=== PATIENT | female | born 1990 | race Caucasian/White ===

== ENCOUNTER 2022-08-25 11:55 | Outpatient (CLI) | payer BC, SELFPAY ==
--- NOTE | ~2022-08-25 | XR_ITS ---
EXAMINATION: XR thoracic spine 2V DATE: 08/25/2022 12:18 INDICATION: Back pain TECHNIQUE: AP and lateral views of the thoracic spine were obtained. COMPARISON: None. FINDINGS: There are 15 degrees of thoracic dextroscoliosis. Bone alignment is normal. There is no fra cture. The vertebral body heights and intervertebral disc spaces are maintained. IMPRESSION: 1. 50 degrees of thoracic dextroscoliosis. Reviewed, dictated and finalized at location B.
--- NOTE | ~2022-08-25 | XR_ITS ---
EXAMINATION: XR lumbar spine 2-3V DATE: 08/25/2022 12:18 INDICATION: Low back pain TECHNIQUE: Anteroposterior and lateral views of the lumbar spine, and cone-down lateral view of the l umbosacral junction were obtained. COMPARISON: None. FINDINGS: There are 6 degrees of lumbar levocurvature. Bone alignment is normal. There is no fracture . There is mild loss of intervertebral disc space height at L5-S1. The vertebral body heights are eliana ntained. Small degenerative osteophytes project from the anterior endplates of multiple vertebral bod ies. IMPRESSION: 1. Mild lumbar spondylosis without acute findings. Reviewed, dictated and finalized at location B.
== END 2022-08-25 11:56 | disposition home or self-care (01) ==
PROVIDERS: PCP Family Medicine; Visit Provider Physician Assistant
DX: M41.9 Scoliosis, unspecified (principal); M47.896 Other spondylosis, lumbar region
CPT/HCPCS: 72070; 72100

== ENCOUNTER 2022-10-27 06:52 | Outpatient (CLI) | payer BC, SELFPAY ==
--- NOTE | ~2022-10-27 | MR_ITS ---
MRI of the lumbar spine Clinical History: Scoliosis Technique: Axial T2-weighted images, and sagittal T1-weighted, T2-weighted, and T2 fat-sat images wer e acquired. Findings: There is no fracture or subluxation of the lumbar spine. Vertebral bodies maintain normal h eight and alignment. No bone marrow signal abnormality seen. At L1-L2 and L2-L3, there is no disc bulge or herniation. There is mild to moderate facet arthropathy . No spinal canal stenosis or neural foraminal narrowing At L3-L4, there is no significant disc bulge or herniation. There is moderate facet arthropathy. No s minnie canal stenosis or neural foraminal narrowing. At L4-L5, there is diffuse disc bulge/protrusion, with superimposed small disc extrusion at the right paracentral region extending inferiorly. There is mild facet arthropathy. There is minimal thecal sa c compression. Bilateral neural foramina are preserved. There may be impingement of descending right- sided L5-S1 level nerve root by the disc extrusion. At L5-S1, there is disc protrusion with small annular fissure. No lauren central canal stenosis. There is mild to moderate bilateral neural foraminal narrowing, left worse than right. Paravertebral soft tissues are unremarkable. At these levels. Impression: Disc bulge at L4-L5 with superimposed right paracentral disc extrusion extending inferiorly, which ma y impinge the descending right-sided L5-S1 level nerve root. Ghyd-co-hhdnglax degenerative spondylosis at L5-S1, as detailed above. Reviewed, dictated and finalized at [facility]. Impression: Disc bulge at L4-L5 with superimposed right paracentral disc extrusion extendin g inferiorly, which may impinge the descending right-sided L5-S1 level nerve ro ot. Pewm-iv-makonkiz degenerative spondylosis at L5-S1, as detailed above.
== END 2022-10-27 06:53 | disposition home or self-care (01) ==
PROVIDERS: PCP Family Medicine; Visit Provider Nurse Practitioner Gerontology
DX: M41.9 Scoliosis, unspecified (principal); M47.897 Other spondylosis, lumbosacral region
CPT/HCPCS: 72148

== ENCOUNTER 2022-11-17 10:35 | Outpatient (CLI) | payer BC, SELFPAY ==
--- NOTE | ~2022-11-17 | XR_ITS ---
EXAMINATION: XR hysterosalpingogram DATE: 11/17/2022 12:33 INDICATION: Fertility testing. TECHNIQUE: Fluoroscopy was performed by the radiologist during contrast infusion into the endometrial cavity of the uterus by the primary physician. Fluoroscopy exposure time was 0.2 minutes. The total number of images was 4. FINDINGS: The intrauterine cavity is normal in morphology. The fallopian tubes are normal in caliber. There is normal free intraperitoneal spillage of contrast on either side. IMPRESSION: 1. Normal hysterosalpingogram. Reviewed, dictated and finalized at location A.
[2022-11-17 12:05] LABS: Beta HCG Quantitative < 2.39 mIU/ML
== END 2022-11-17 10:36 | disposition home or self-care (01) ==
PROVIDERS: PCP Family Medicine; Visit Provider Obstetrics & Gynecology Gynecology
DX: Z01.818 Encounter for other preprocedural examination (principal)
CPT/HCPCS: 36415; 58340; 74740; 84702; Q9966

== ENCOUNTER → 2023-02-16 11:17 | Outpatient (CLI) | payer BC, SELFPAY ==
--- NOTE | ~2023-02-16 | US_ITS ---
EXAMINATION: US OB transvaginal DATE: 02/16/2023 11:50 INDICATION: Uncertain dates. from in vitro fertilization. TECHNIQUE: Real-time transvaginal pelvic ultrasound was performed. COMPARISON: None. FINDINGS: The uterus measures 9.1 x 5.3 x 5.9 cm. There is a 2.4 cm subserosal fibroid. There is an intrauterin e gestational sac. A yolk sac is identified. The crown rump length measures 10 mm, which corre lates with an estimated gestational age of 7 weeks and 1 day(s) (+/-) 5 day(s). heart motion is identified measuring 143 beats per minute (bpm) by M-mode Doppler. The right ovary measures 2.1 x 1. 7 x 2.1 cm. The left ovary measures 3.0 x 2.7 x 2.4 cm. There is no free fluid in the pelvis. IMPRESSION: 1. Single living intrauterine gestation with estimated date of delivery of 10/04/2023. 2. Uterine fibroid. Reviewed, dictated and finalized at location E. IMPRESSION: 1. Single living intrauterine gestation with estimated date of delivery of 10/03. 2. Uterine fibroid.
== END ==
PROVIDERS: PCP Obstetrics & Gynecology Gynecology; Visit Provider Obstetrics & Gynecology Gynecology
DX: N97.9 Female infertility, unspecified (principal); O09.811 Supervision of pregnancy resulting from assisted reproductive technology, first trimester; Z3A.00 Weeks of gestation of pregnancy not specified
CPT/HCPCS: 76817

== ENCOUNTER 2023-10-03 12:37 | Outpatient (RCR) | payer BC, SELFPAY ==
[2023-09-18 09:17] VITALS: BP 107/63; PULSE 84
[2023-09-23 17:31] VITALS: BP 105/67; PULSE 77
[2023-09-26 11:05] VITALS: BP 114/67; PULSE 72
[2023-10-03 13:06] VITALS: BP 114/70; PULSE 90
== END 2023-10-19 08:12 | disposition home or self-care (01) ==
LOC: ANHOBOP 12:37
PROVIDERS: PCP Family Medicine; Visit Provider Obstetrics & Gynecology Gynecology
DX: O09.519 Supervision of elderly primigravida, unspecified trimester (principal); Z3A.37 37 weeks gestation of pregnancy; Z3A.38 38 weeks gestation of pregnancy; Z3A.39 39 weeks gestation of pregnancy
CPT/HCPCS: 59025

== ENCOUNTER 2023-10-06 15:51 | Inpatient (IN) | payer BC, SELFPAY ==
[2023-10-06] VITALS (13 sets, daily range): BP systolic 85–121; BP diastolic 39–98; PULSE 58–94; TEMP 36.6–37; BMI 28.8
[2023-10-06 17:14] LABS: Basophils Percent Auto 0.2 % (0.2-1.2); Eosinophils Absolute Auto 0.1 K/mm3 (0-0.3); Eosinophils Percent Auto 0.6 % (0-4.4); Hematocrit 33.6 % (37.0-47.0); Hemoglobin 11.7 g/dL (12.0-15.0); Immature Granulocyte Absolute 0.09 K/mm3 (0.00-0.031); Immature Granulocyte Percent A 0.9 % (0-0.5); Lymphocytes Absolute Auto 1.65 K/mm3 (0.9-3.2); Lymphocytes Percent Auto 17.4 % (18.3-44.2); Mean Corpuscular HGB Conc 34.8 g/dl (32-36); Mean Corpuscular Hemoglobin 31.3 pg (26-34); Mean Corpuscular Volume 89.8 fl (80-100); Mean Platelet Volume 10.3 fl (7.4-10.4); Monocytes Absolute Auto 0.7 K/mm3 (0.1-0.6); Monocytes Percent Auto 7.7 % (2.6-8.5); Neutrophils Absolute Auto 6.9 K/mm3 (1.3-6.7); Neutrophils Percent Auto 73.2 % (45.5-73.1); Platelet Count Result 205 k/mm3 (150-375); Red Blood Count 3.74 M/mm3 (4.2-5.4); Red Cell Distribution Width 12.8 % (11.5-14.5); White Blood Count 9.5 K/mm3 (4.5-10.0)
--- NOTE | 2023-10-06 17:21 | WPDOBADMIT ---
Obstetrics - Admit Note Admission Note: record reviewed. No pertinent additions to the history and/or any subsequent changes in the physical findings that are not consistent with the expected course of the were found. Additions to the history and/or subsequent changes in the physical findings follow. None.
[2023-10-06] MEDS: miSOPROStol 25 MCG TABLET VAGINAL (17:27)
--- NOTE | 2023-10-06 17:41 | LDADM ---
This patient, Jan Green, was admitted to Labor/Delivery/Recovery 102 on 10/06/23 at 15:51. Plans for labor, pain management and were discussed with patient. Patient/family oriented to hospital policies and general routines including ID bracelet, bed and alarms, visiting hours, pain management, procedures, bathroom and other care routines, personal items, smoking policy, room service/diet and guest tray routines, security routines, and visiting hours. Patient/Family are encouraged to report perceived risks to care and to ask questions if they do not understand what they are told or what they should do. See OBIX for further documentation.
[2023-10-06 18:15] LABS: HIV 1/2 Ab P24 Ag Result Negative (Negative)
[2023-10-06] MEDS: LACTATED RINGERS 1,000 ML 125 ML IV CONT (18:31)
[2023-10-06] MEDS: AMPICILLIN 2 GM/NS 100 ML 2 GM/100 ML BAG IVPB (18:32)
--- NOTE | 2023-10-06 18:48 | WPDANESEPP ---
Anes - Eval Pre Procedure Procedure: Labor epidural Date/Time: 10/06/23 18:48 Pre Op Diagnosis: Induction of Labor Patient Data Age: 33 Gender: F Height: 1.73 m Weight: 86 kg Last Vital Signs Pulse 85 10/06/23 18:10 BP 106/61 10/06/23 18:10 O2 Del Method Room Air 10/06/23 17:37 Allergies Allergy/AdvReac Type Severity Reaction Status Date / Time cefaclor Allergy Unknown Rash Verified 09/07/23 13:49 Home Medications Medication Instructions Recorded Confirmed Type cholecalciferol (vitamin D3) 125 125 mcg PO WEEKLY 09/07/23 09/07/23 History mcg (5,000 unit) tablet (Vitamin D3) vits no.126-ferrous fum 1 tablet PO DAILY 09/07/23 09/07/23 History 28 mg iron-folic acid 800 mcg tablet (Classic ) aspirin 81 mg capsule 81 mg PO DAILY 10/06/23 10/06/23 History cetirizine 10 mg capsule (Zyrtec) 10 mg PO DAILY PRN allergies 10/06/23 10/06/23 History fluticasone propionate 50 1 spray intranasal DAILY 10/06/23 10/06/23 History mcg/actuation nasal spray,suspension Laboratory Tests 10/06/23 17:06 WBC 9.5 K/mm3 (4.5-10.0) RBC 3.74 L M/mm3 (4.2-5.4) Hgb 11.7 L g/dL (12.0-15.0) Hct 33.6 L % (37.0-47.0) MCV 89.8 fl (80-100) MCH 31.3 pg (26-34) MCHC 34.8 g/dl (32-36) RDW 12.8 % (11.5-14.5) Plt Count 205 k/mm3 (150-375) MPV 10.3 fl (7.4-10.4) Immature Gran % (Auto) 0.9 H % (0-0.5) Neut % (Auto) 73.2 H % (45.5-73.1) Lymph % (Auto) 17.4 L % (18.3-44.2) [place] % (Auto) 7.7 % (2.6-8.5) Eos % (Auto) 0.6 % (0-4.4) Baso % (Auto) 0.2 % (0.2-1.2) Lymph # (Auto) 1.65 K/mm3 (0.9-3.2) [place] # (Auto) 0.7 H K/mm3 (0.1-0.6) Eos # (Auto) 0.1 K/mm3 (0-0.3) Baso # (Auto) 0.0 K/mm3 (0.0-0.1) Abs Immat Gran (auto) 0.09 H K/mm3 (0.00-0.031) Absolute Neuts (auto) 6.9 H K/mm3 (1.3-6.7) Absolute Nucleated RBC 0.000 K/mm3 (0.0-0.012) Nucleated RBC % 0.0 % (0.0-0.2) RPR Pending HIV 1&2 Ab/P24 Ag 4thGn Negative (Negative) Blood Type O Positive Antibody Screen Negative Patient hx anesthesia problems: none Family hx anesthesia problems: none Results Review: All pre-operative results and documents have been reviewed as part of the pre-operative evaluation. [facility] Past Medical History Medical History (Updated 10/06/23 @ 18:49 by Beverley Bell CRNA) Anal fissure VALENCIA (generalized anxiety disorder) Herniated disc Surgical History Surgical History No significant past surgical history Family History Family History Mother Depression Diabetes mellitus borderline Hypertension Diverticulitis Mixed hyperlipidemia Grandparent Family history of lung cancer Diabetes mellitus Hypertension Mixed hyperlipidemia Father Carcinoma of colon Social History Social History Social History: Years smoked: 5 Smoking status: Former smoker Tobacco type: cigarettes Second hand tobacco smoke exposure: No Smoking end date: 10/03/23 Additional smoking assessment comments: Occasional social smoker. Alcohol intake: current Alcohol use details: Socially Substance use: never Substance use type: does not use Do You Feel Safe in your Home?: Yes Lack of Transportation: No Lack of Food: Never True Current Housing: I Have Housing Concerned About Future Housing: No Difficulty Paying Gas/Electric Bills: No Difficulty Paying for Meds: No Currently Unemployed: No Education: Bachelor's Degree Difficulty w/ Childcare or Family Care: No Living arrangements: with family Occupation/Education: occupation Gender identity (if verbalized by the patient): Female Sexual Orientation (if Verbalized by the Patient):
[2023-10-06] MEDS: miSOPROStol 25 MCG TABLET 50 MCG VAGINAL (21:40)
[2023-10-06] MEDS: hydrOXYzine HCL 25 MG TABLET PO (22:59)
[2023-10-06] MEDS: AMPICILLIN 1 GM/NS 50 ML 1 GM/50 ML BAG IVPB (23:04)
[2023-10-07] VITALS (237 sets, daily range): BP systolic 56–144; BP diastolic 19–116; PULSE 53–165; TEMP 36.7–38; O2SAT 82–100
[2023-10-07] MEDS: miSOPROStol 25 MCG TABLET 50 MCG BY MOUTH (01:42)
[2023-10-07] MEDS: AMPICILLIN 1 GM/NS 50 ML 1 GM/50 ML BAG IVPB ×6 (03:04→22:29)
--- NOTE | 2023-10-07 06:59 | PM.OBPNLAB ---
Pain Control Date/time seen: 10/07/23 06:50 Pain control: tolerating well Comments: Feeling cramping Pelvic Exam Dilation (cm): 1 (1.5) Effacement (%): 60 station: -2 Amniotic membrane status: Intact Comments: head well applied Contractions Monitor mode: External Contraction frequency: 3 Contraction pattern: Regular Contraction intensity: Moderate Status status: Category l Assessment and Plan Assessment: induction ongoing Comments: CNM to bedside. Discussed plan of care an option for amniotomy. Discussed risks, benefits, and expectations of breaking water. Patient is agreeable. Amniotomy performed and there was a small return of clear amniotic fluid with some bloody show. Patient tolerated procedure well. Dr. London updated.
[2023-10-07] MEDS: LACTATED RINGERS 1,000 ML 125 ML IV CONT ×2 (08:34→13:16)
[2023-10-07] MEDS: hydrOXYzine HCL 12.5 MG TABLET PO (09:19)
--- NOTE | 2023-10-07 15:28 | P.PNOB_ITS ---
Pain Control Date/time seen: 10/07/23 15:20 Pain control: tolerating well and epidural Pelvic Exam Dilation (cm): 5 (5.5) Effacement (%): 80 station: -2 Amniotic membrane status: Ruptured Comments: bloody show present. No active bleeding. Uterine resting tone soft. Contractions Monitor mode: External Contraction pattern: Irregular Contraction intensity: Moderate Status status: Category ll Assessment and Plan Assessment: active labor Comments: Discussed plan of care. Recommend IUPC placement to facilitate uterine activity monitoring. Bloody show WNL/moderate. Due to cervical edema, recommend IV benadryl. If needed, start pitocin in about 30 minutes. Pt agrees to IUPC. Mayuri lyubov easily and clear fluid returned in catheter. Ctx q [address] London updated.
[2023-10-07] MEDS: diphenhydrAMINE HCl INJ 50 MG/ML VIAL 25 MG IV PUSH (15:31)
[2023-10-07] MEDS: CALCIUM CARBONATE (TUMS) 500 MG (200 MG ELEMENTAL) PO (15:31)
[2023-10-07] MEDS: OXYTOCIN 30 UNITS/NS 500 ML 30 UNITS/500 ML BAG IV CONT (16:06)
[2023-10-07 16:23] LABS: Rapid Plasma Reagin Non-Reactive (NonReactive)
[2023-10-07] MEDS: ACETAMINOPHEN 500 MG TABLET 1000 MG PO (17:22)
[2023-10-07] MEDS: GENTAMICIN SULFATE INJ 430 MG in DEXTROSE 5% 100 ML 110.75 MG IVPB (17:36)
--- NOTE | 2023-10-07 17:52 | PM.OBPNLAB ---
Pain Control Date/time seen: 10/07/23 17:20 Pain control: tolerating well and epidural Pelvic Exam Dilation (cm): 5 (5.5) Effacement (%): 80 station: -1 Amniotic membrane status: Ruptured Comments: Bloody show WNL Contractions Monitor mode: Internal Contraction frequency: 3 (2-4) Contraction pattern: Irregular Contraction intensity: Moderate Intrauterine tone measurement: 110 (110-120) Status status: Category ll Assessment and Plan Comments: SVE with change of station. Not adequate per IUPC readings. Repositioned to far L Lateral with leg supported on ball. Ordered Gentamycin due to fever of 100.4 and change in FHT baseline.
--- NOTE | 2023-10-07 18:06 | PM.OBPNLAB ---
Pain Control Date/time seen: 10/07/23 18:06 Contractions Intrauterine tone measurement: 110 (110-120) Assessment and Plan Comments: Dr. London at nurses station. Reviewed tracing and plan of care.
--- NOTE | 2023-10-07 18:29 | PM.OBPNLAB ---
Pain Control Date/time seen: 10/07/23 18:25 Pain control: epidural Comments: Feeling increased rectal pressure Pelvic Exam Dilation (cm): 6 (5.5) Effacement (%): 90 station: -1 Amniotic membrane status: Ruptured Contractions Monitor mode: Internal Contraction frequency: 3 (3-5) Contraction pattern: Irregular Status status: Category ll Assessment and Plan Pitocin rate (mU/min): 4 Assessment: induction ongoing Comments: SVE with good change. Less edema. Bloody show still present with 2 small dime sized clots. Uterine resting tone remains soft to palpation at rest. Ctx moderate to strong. Feeling increased pelvic/rectal pressure. Denies any abdominal pain.
--- NOTE | 2023-10-07 20:23 | PM.OBPNLAB ---
Pain Control Date/time seen: 10/07/23 20:23 Pain control: tolerating well and epidural Pelvic Exam Dilation (cm): 8 (8.5) Effacement (%): 90 station: +1 Amniotic membrane status: Ruptured Contractions Monitor mode: Internal Contraction frequency: 3 (3-5) Contraction pattern: Regular Status status: Category ll Assessment and Plan Pitocin rate (mU/min): 5 Assessment: active labor Plan: continuous present management Comments: Recent FHT decel and pt reports feeling increased rectal pressure. SVE with good change and descent in station. Anticipate vaginal . Dr. London updated.
[2023-10-07] MEDS: DEXTROSE 5%/LACTATED RINGERS 1,000 ML 125 ML IV CONT (20:39)
--- NOTE | 2023-10-07 21:37 | PM.OBPRVD ---
OB - Vaginal Delivery Note Procedure Delivery date: 10/08/23 Events: Positive Group B Strep (GBS) Intrapartal Events: Chorioamnionitis Induction method: AROM and Per Misoprostol Protocol Delivery augmentation: Pitocin Delivery monitor: External FHT and Internal Uterine Route of delivery: Episiotomy description: Right Mediolateral Laceration Description: Vaginal (left vaginal wall), Labial (right labial/vaginal wall) and Other (bilateral sulcus) Delivery repair: vicryl Specimen: Yes (placenta) Quantitative Blood Loss (ml): 950 Anesthesia type: Epidural Disposition: Floor Complications: Other complications (hemorrhage) Narrative: Jan arrived for Induction of labor secondary to advanced maternal age and marginal cord insertion. she received Cytotec for cervical ripening after which membranes were ruptured. She made some cervical change and Pitocin was later given for augmentation. After she was determined to be completely dilated, she began pushing with contractions. For the 1st 30-45 minutes there was fair maternal effort with pushing but this improved. She pushed in multiple positions and eventually brought the head to complete crown. Over the next 3-4 contractions, the head remained at a crown and a tight perineal band was noted. Informed consent was obtained from the patient to perform an episiotomy. A right mediolateral episiotomy was made with the next contraction. With the following contraction, she delivered the entire head. There was good restitution any easy delivery of the anterior and posterior shoulders. Terminal meconium was noted at this point. After 45 seconds of delayed cord clamping, the cord was doubly clamped and cut. Cord blood was obtained for donation after which cord gases, cord blood, and cord segment were obtained. The placenta delivered spontaneously and marginal cord insertion was noted. All lacerations were repaired in the usual fashion. There was excellent hemostasis and uterine tone throughout. Mother and baby skin to skin in the delivery room. Estimated blood loss 950 mL. Additional IV fluids given to compensate blood loss. [place] Baby Date of : 10/08/23 Time of : 00:48 Weeks of gestation at delivery: 40 gender: Male Weight (pounds): 8 Weight (ounces): 5 presentation: vertex position: Right Occiput Anterior Placenta delivery description: Spontaneous and Abnormal Configuration (marginal insertion) Cord Vessel Description: 3 Vessels and Delayed Cord Clamping (x 45 seconds) score one minute: 8 score five minutes: 9
--- NOTE | 2023-10-07 21:38 | PM.OBDSVD ---
DS: Admitting Diagnosis Discharge Date 10/10/23 Admitting Diagnosis 33 y.o. at 39 weeks AMA IOL LGA fetus DS: Discharge Diagnosis Discharge Diagnosis (1) (normal spontaneous vaginal delivery): Code(s): O80 - Encounter for full-term uncomplicated delivery Status: Acute (2) Obstetric vaginal laceration with second degree perineal laceration: Code(s): O70.1 - Second degree perineal laceration during delivery Status: Acute (3) Anxiety: Code(s): F41.9 - Anxiety disorder, unspecified Status: Acute (4) Mother currently breastfeeds: Status: Acute OB - DS: Summary Hospital Course Hospital Course: uncomplicated OB Procedures : Ultrasound OB Procedures Intrapartum: Spontaneous Vag Delivery, Episiotomy, GBS prophylaxis and Other (antibiotics for temp) OB Procedures: : None Peripartum Data Delivery Method: Natural Vaginal Laceration Description: Vaginal and Labial Episiotomy description: Right Mediolateral complications: other (hemorrhage) Status at Discharge Functional status at discharge: independent ambulation Overall status at discharge: patient is progressing back to baseline Time Spent with Patient Time attestation: Total time spent providing and/or coordinating discharge services: Exam Narrative: Alert and oriented. Mood is pleasant and cooperative. Perineum with minimal edema. Fundus firm and below umbilicus. Const: General: cooperative, healthy appearing, no acute distress and alert Orientation/consciousness: patient oriented x3 Limitations: no limitations Resp: Effort & Inspection: normal respiratory effort and able to speak in complete sentences Auscultation: clear to auscultation bilaterally Cardio: Rate: regular rate GI: Inspection: normal to inspection Auscultation: normal bowel sounds : General: Yes bladder normal to palpation External Female Exam: other (lochia WNL) Bimanual exam- vagina & uterus: bladder normal to palpation Other: Fundus firm and below U Skin: General skin exam: normal color and no rashes or lesions noted Neuro: General: patient oriented x3 and moves all extremities Cognition (Neuro): normal cognition Extrem: General: normal to inspection and no calf tenderness Psych: Appearance: grossly normal Mental Status: mental status grossly normal Affect: normal affect Thought process: Normal thought process present DS: Data Data Completed and Pending Labs on day of discharge: Labs from last 24 hours 10/06/23 17:06 RPR Non-reactive Discharge Plan Discharge Attending physician on discharge: Sammie Samayoa Consulting providers: Julius London Discharging Clinician: Samira Verduzco Anticipated Discharge Date/Time: 10/10/23 10:00 Patient Disposition: Home, Self-Care Activity: may shower and pelvic rest Diet: as tolerated and regular Wound Care Instructions: follow printed instructions Discharge Instructions: Continue taking your vitamin and any other supplements as previously directed (Examples: Iron, Vitamin D). You may take Tylenol 1000mg over the counter every 6 hours as needed for pain. Do not exceed 4000mg of Tylenol daily. You may continue using tucks pads and dermoplast spray if needed for a few more days. max dose of Tylenol is 4000mg per 24 hour period Try to pump and hand express every 2-3 hours during the day and at least twice at night. Depression Notify provider for signs or symptoms. These may include- Feelings: Feeling anxious, angry, hopeless, guilt, or loss of interest/pleasure in activities you normally enjoy. Mood swings or panic attacks. General: Extreme fatigue, loss of your appetite, feeling restless. Crying excessively, irritability, insomnia Psychological: Lack of concentration, depression or fear, unwanted thoughts Weight: Significan
--- NOTE | 2023-10-07 23:10 | PM.OBPNLAB ---
Pain Control Date/time seen: 10/07/23 23:10 Pain control: tolerating well and epidural Pelvic Exam Dilation (cm): 10 (8.5) Effacement (%): 100 station: +2 Amniotic membrane status: Ruptured Contractions Monitor mode: Internal Contraction frequency: 3 (3-5) Contraction pattern: Regular Status status: Category ll Assessment and Plan Assessment: active labor Comments: Pt pushing with contractions with fair effort. CNM continually at bedside. Repositioned pt very frequently. Making progress/descent. Pt tiring with pushing effort. Plan to give pt 20 minute break from pushing to rest and will then resume pushing.
[2023-10-08] VITALS (45 sets, daily range): BP systolic 102–138; BP diastolic 52–122; PULSE 58–154; RESP 16–18; TEMP 36.2–37.7; O2SAT 86–100
[2023-10-08] MEDS: OXYTOCIN 30 UNITS/NS 500 ML 30 UNITS/500 ML BAG 999 UNITS IV CONT (00:50)
[2023-10-08] MEDS: OXYTOCIN 30 UNITS/NS 500 ML 30 UNITS/500 ML BAG 125 UNITS IV CONT (02:01)
[2023-10-08] MEDS: WITCH HAZEL 40 PADS 1 PAD TOPICAL (04:45)
[2023-10-08] MEDS: BENZOCAINE 20% AER SPR (*SP) 56 GM CAN 1 SPRAY TOPICAL (04:45)
[2023-10-08] MEDS: IBUPROFEN 600 MG TABLET PO ×3 (05:03→22:27)
--- NOTE | 2023-10-08 05:10 | OBPPTRN ---
Patient transferred to post room #291 via wheelchair. Support person/ spouse present. Oriented to unit, room, information board, rooming in, admission packet and security measures. Patient verbalizes understanding.
[2023-10-08] MEDS: CHOLECALCIFEROL 1,000 UNITS TABLET 5000 UNITS PO (09:23)
[2023-10-08] MEDS: MULTIVIT/MIN/PREN/FOL AC/IRON TABLET 1 TAB PO (09:23)
[2023-10-08] MEDS: HYDROcodone/acetaminophen (*CRX) 5-325 MG TABLET 1 TAB PO (09:31)
--- NOTE | 2023-10-08 10:40 | PM.OBPNVD ---
OB - PN: Subj Subjective Date/time seen: 10/08/23 10:40 Interval history: CNM to bedside. Nurses working with Jan and baby with . Sitting upright in bed. Respirations even and unlabored. Skin color WNL. No signs of distress. IV fluids infusing. Plan H/H 2 hours after infusion complete. baby status: other (attempting to breastfeed) [place] feeding status: exclusively breast feeding OB - PN: Obj Data Labs 10/06/23 17:06 Labs: Laboratory Results - last 24 hr 10/06/23 17:06 RPR Non-reactive OB - PN A/P Time Spent With Patient Time: Total time spent is greater than 50% in coordination of care (as documented) at patient's floor/unit and/or counseling patient:
--- NOTE | 2023-10-08 13:47 | PC.NURSE ---
[id number] Introductions were made, then consulted with patient to assess needs related to . Discussed with mother her?plans to feed?her infant and the?experience so far. is in the nursery under the warmer related to decreased temperature. Report received that infant is spitty and gaggy . Education was given to mother of how to hand express. Mother was able to demonstrate learning and expressed drops of colostrum from each breast. Nipple shield provided to mother on the shift superintendent caustic cresylate due to ineffective . Reviewed good handwashing, cleaning the nipple shield and the appropriate way to apply and use as a tool. Discussed with mom the nipple shield precautions, possible complications associated with the risks and benefits. Reviewed practicing with a nipple shield, then without and how to protect the milk supply and production. Mom voiced understanding of the importance of hand expression, nipple stimulation and initiating a pumping schedule if infant continues to nurse with the shield. Encouraged mother to place [id number] when comes back to the room. Resources provided for inpatient with LARISA NOVOA name written on the communication board to use along with the call light. Mother voiced understanding of information and will call if there is a request for assistance. Reported to the Primary RN. 1240 - Encouraged understanding of the benefits of skin to skin (demonstrating unwrapping infant and placing upright on her chest), stimulating with massage touch, changing positions to encourage wakefulness, how to watch for early feeding cues, responsive feeding, feeding on demand (aiming for 8-12 times in 24 hours, about every 2-3 hours), milk production, building/maintaining a milk supply, duration of feeding, signs of adequate intake/output and how to record on the feeding sheet. Reviewed positioning and ear, shoulder, hip alignment, supporting the breast to facilitate a deep latch, asymmetrical latch (off-center), leading with the chin with a big, open, wide gape and body close to mother. makes no attempts to latch at this time related to no rooting visualized. Mother requests attempting with the nipple shield to get to feed. LARISA NOVOA shared with mother without infant making effort to open the mouth and latch we can attempt but might not be ready at this time. made no attempts with or without the nipple shield. Temperature of infant was taken and resulted as 97.6 F. Mother is anxious. Malena W. RN is confident and capable to instruct patient with initiating pumping. Reported to the Primary RN Juanita regarding decreasing temperature, slow cap refill and poor feeding with no latching.
[2023-10-08 14:53] LABS: Hematocrit 29.7 % (37.0-47.0)
[2023-10-08] MEDS: SIMETHICONE 80 MG TAB.CHEW PO (14:59)
[2023-10-08] MEDS: ACETAMINOPHEN 325 MG TABLET 650 MG PO ×2 (14:59→22:27)
[2023-10-08] MEDS: hydrOXYzine HCL 25 MG TABLET PO (22:28)
--- NOTE | 2023-10-08 22:30 | PC.NURSE ---
2230- Patient pumped 5mL breast milk at this time due to separation from transferred to [facility]. Assisted patient with washing of pump parts and laid out to air dry.
[2023-10-09] MEDS: ACETAMINOPHEN 325 MG TABLET 650 MG PO ×2 (04:01→10:49)
[2023-10-09] MEDS: IBUPROFEN 600 MG TABLET PO ×2 (04:01→10:49)
[2023-10-09] MEDS: SIMETHICONE 80 MG TAB.CHEW PO (07:45)
[2023-10-09] MEDS: HYDROcodone/acetaminophen (*CRX) 5-325 MG TABLET 1 TAB PO ×2 (07:45→10:50)
[2023-10-09] MEDS: DOCUSATE SODIUM 100 MG CAPSULE PO (07:45)
--- NOTE | 2023-10-09 07:59 | WPDANLDPN2 ---
Anes-Prog Note L&D Date/Time: 10/09/23 07:59 Comfortable throughout: labor and delivery Neuraxial method: epidural Epidural/Spinal procedure site: clean & non-tender Neuro status: Neuro function grossly intact. Cardiovascular status: normal Respiratory status: normal Airway patency: baseline Mental status: baseline Post-Op hydration status: normal Vital Signs: Last Vital Signs Temp 36.2 C L 10/08/23 23:00 Pulse 97 10/08/23 23:00 Resp 18 10/08/23 23:00 BP 107/64 10/08/23 23:00 Pulse Ox 99 10/08/23 23:00 O2 Del Method Room Air 10/06/23 17:37 Pain score (VAS): 10 Post-procedural complaints: none Patient feedback: Patient satisfied with anesthetic care.
[2023-10-09 09:10] VITALS: BP 121/68; PULSE 100; RESP 16; TEMP 36.5; O2SAT 100
--- NOTE | 2023-10-09 09:49 | PM.OBPNVD ---
OB - PN: Subj Subjective Date/time seen: 10/09/23 0735 Interval history: Doing fair. Tolerating po food and fluid. Urinating without difficulty. Pain well controlled with Motrin and [place]. Denies passing any large clots. No dizziness with ambulation. Breast pumping d/t transfer. Patient comments: no complaints and tolerating diet [place] baby status: NICU [place] feeding status: pumping and storing OB - PN: Obj Data Labs 10/08/23 14:47 Labs: Laboratory Results - last 24 hr 10/08/23 14:47 Hgb 10.0 L Hct 29.7 L OB - PN A/P Assessment and Plan (1) (normal spontaneous vaginal delivery): Code(s): O80 - Encounter for full-term uncomplicated delivery Status: Acute (2) Mother currently breastfeeds: Status: Acute (3) Obstetric vaginal laceration with second degree perineal laceration: Code(s): O70.1 - Second degree perineal laceration during delivery Status: Acute (4) Anxiety: Code(s): F41.9 - Anxiety disorder, unspecified Status: Acute Plan day: 1 Plan: discharge home Comments: DC home d/t transfer. To f/up at [place] for check. Time Spent With Patient Time: Total time spent is greater than 50% in coordination of care (as documented) at patient's floor/unit and/or counseling patient: Review of Systems Review of Systems: All systems reviewed & are unremarkable except as noted in HPI and below Exam Narrative: Alert and oriented. Mood is pleasant and cooperative. Perineum with minimal edema. Fundus firm and below umbilicus. Const: General: cooperative, healthy appearing, no acute distress and alert Orientation/consciousness: patient oriented x3 Limitations: no limitations Resp: Effort & Inspection: normal respiratory effort and able to speak in complete sentences Auscultation: clear to auscultation bilaterally Cardio: Rate: regular rate GI: Inspection: normal to inspection Auscultation: normal bowel sounds : General: Yes bladder normal to palpation External Female Exam: other (lochia WNL) Bimanual exam- vagina & uterus: bladder normal to palpation Other: Fundus firm and below U Skin: General skin exam: normal color and no rashes or lesions noted Neuro: General: patient oriented x3 and moves all extremities Cognition (Neuro): normal cognition Extrem: General: normal to inspection and no calf tenderness Psych: Appearance: grossly normal Mental Status: mental status grossly normal Affect: normal affect Thought process: Normal thought process present
[2023-10-12 11:03] VITALS: BP 112/64; PULSE 87; RESP 18; TEMP 36.7; O2SAT 100
== END 2023-10-09 11:15 | disposition home or self-care (01) | DRG 807 ==
LOC: ANHLDR 10-08 02:41 → ANHOB2 10-08 06:30
PROVIDERS: Admitting Provider Obstetrics & Gynecology Gynecology; PCP Family Medicine; Referring Provider Advanced Practice Midwife; Visit Provider Obstetrics & Gynecology Gynecology
DX: O41.1230 Chorioamnionitis, third trimester, not applicable or unspecified (principal); Z37.0 Single live birth; O70.1 Second degree perineal laceration during delivery; O99.824 Streptococcus B carrier state complicating childbirth; O43.123 Velamentous insertion of umbilical cord, third trimester; Z3A.40 40 weeks gestation of pregnancy
CPT/HCPCS: 36415; 85014; 85018; 85025; 86592; 86703; 86850; 86900; 86901; 88307; A9270; G0432; J0290; J1200; J1580; J2590; J2795; J7120; J7121

== ENCOUNTER 2024-02-17 12:56 | Outpatient (CLI) | payer BC, SELFPAY ==
--- NOTE | ~2024-02-17 | US_ITS ---
US pelvic complete w TV Ordering provider: Samira Verduzco CNM History: . LLQ Pain . Comparison: None. Technique: Transabdominal and endovaginal ultrasound of the pelvis (Doppler ultrasound interrogation techniques used as needed for this exam.) FINDINGS: CERVIX: Normal. UTERUS: Measures 9x 5.1x 4 cm in length which is within normal limits and is anteverted. Fibroid is seen in the posterior wall measuring 1 x 1.5 x 1.3 cm. ENDOMETRIUM: Normal in thickness measuring 13 mm. No endometrial masses, cysts or fluid. CUL DE SAC: Small posterior free fluid. RIGHT OVARY: Normal in size measuring 1.9x 2x 2 cm. Normal echotexture. Doppler vascular flow present . LEFT OVARY: Normal in size measuring 3.3x 2.7x 3.6 cm. Normal echotexture. Doppler vascular flow pres ent. Septated left ovarian cyst is seen measuring 1.5 x 1.5 x 1.6 cm. ADNEXA: Normal. No mass. IMPRESSION: Left ovarian septated cyst. Follow-up advised. Fibroid uterus. Thickened endometrium. Correlation wit h the menstrual stage is advised Otherwise, normal pelvic ultrasound. Reviewed, dictated and finalized at location A. IMPRESSION: Left ovarian septated cyst. Follow-up advised. Fibroid uterus. Thickened endome trium. Correlation with the menstrual stage is advised Otherwise, normal pelvic ultrasound.
== END 2024-02-17 12:57 | disposition home or self-care (01) ==
LOC: GOSHIMG 12:56
PROVIDERS: PCP Advanced Practice Midwife; Visit Provider Advanced Practice Midwife
DX: R10.2 Pelvic and perineal pain (principal); N83.202 Unspecified ovarian cyst, left side
CPT/HCPCS: 76830; 76856

== ENCOUNTER 2024-03-29 12:47 | Outpatient (CLI) | payer BC, SELFPAY ==
--- NOTE | ~2024-03-29 | US_ITS ---
EXAMINATION: US pelvic complete DATE: 03/29/2024 13:04 INDICATION: L ovarian cyst TECHNIQUE: Multiple transabdominal sonographic images of the pelvis were obtained. COMPARISON: 02/17/2024. FINDINGS: Uterus: 8.7 x 4.9 x 3.8 cm. 1.3 cm hypoechoic focus in the uterine body, likely fibroid. Endometrial complex measures 15 mm. Right Ovary: Not visualized. Left Ovary: 2.8 x 2.5 x 3.7 cm. Vascular flow is present. 2.4 cm simple cyst There is no free fluid in the pelvis. IMPRESSION: Small uterine fibroid. Simple left ovarian cyst. Right ovary not visualized in this transabdominal ex amination. Reviewed, dictated and finalized at location K. ORATE TUTOR IMPRESSION: Small uterine fibroid. Simple left ovarian cyst. Right ovary not visualized in this transabdominal examination.
== END 2024-03-29 12:48 | disposition home or self-care (01) ==
LOC: GOSHIMG 12:47
PROVIDERS: PCP Advanced Practice Midwife; Visit Provider Obstetrics & Gynecology Gynecology
DX: N83.202 Unspecified ovarian cyst, left side (principal); D25.9 Leiomyoma of uterus, unspecified
CPT/HCPCS: 76856

== ENCOUNTER 2024-04-21 13:20 | Outpatient (CLI) | payer BC, SELFPAY ==
--- NOTE | ~2024-04-21 | US_ITS ---
Pelvic ultrasound. Clinical History: Pelvic pain Technique: Realtime transabdominal and transvaginal scanning of the pelvis was performed. Color flow Doppler and Doppler spectral analysis were performed. Findings: The uterus is anteverted. The endometrial stripe has a thickness of 11 mm. Small posterior subserosal fibroid measures 1.8 cm in diameter. The right ovary measures 3.0 x 2.4 x 3.6 cm. Hemorrhagic right ovarian cyst measures 2.0 cm in diamet er. The left ovary measures 2.7 x 1.9 x 2.9 cm. No significant left ovarian or adnexal mass is seen. There is trace free fluid in the cul de sac. Impression: 2 cm hemorrhagic right ovarian cyst. Reviewed, dictated and finalized at [facility]. GE MECHANIC Impression: 2 cm hemorrhagic right ovarian cyst.
== END 2024-04-21 13:21 | disposition home or self-care (01) ==
LOC: MICIMG 13:21
PROVIDERS: PCP Obstetrics & Gynecology Gynecology; Visit Provider Obstetrics & Gynecology Gynecology
DX: N83.201 Unspecified ovarian cyst, right side (principal)
CPT/HCPCS: 76830; 76856

== ENCOUNTER 2024-07-20 08:58 | Emergency (ER) | payer OTHER, SELFPAY ==
[2024-07-20 09:06] VITALS: BP 111/81; PULSE 98; RESP 16; TEMP 36.1; O2SAT 100
[2024-07-20 09:29] LABS: Add Urine Microscopic? NO; Appearance Urine Clear (Clear); Bilirubin Urine Negative (Negative); Blood Urine Negative (Negative); Color Urine Yellow (Yellow); Glucose Urine UA Negative (Negative); Ketones Urine Negative (Negative); Leukocyte Esterase Ur Negative LEU/UL (Negative); Nitrate Urine Negative (Negative); Protein Urine Negative (Negative); Specific Grav Ur 1.005 (1.001-1.035); Urobilinogen Urine 0.2 mg/dL (<2.0); pH Urine 6.5 (5.0-9.0)
--- OUTSIDE RECORDS SUMMARY | 2024-07-20 09:37 | XMS_ITS | Clinical Summary ---
Author Organization [facility] Address [address] [place] [address] Care Team Providers Care Stretching Press Operator Name Role Phone Kerri Figueroa MD Unavailable [phone] Kerri Figueroa MD Primary Care Provider + Source Comments [facility],non-owned Affiliates and Associated Physician Practices is amultiple site organization consisting of ambulatory clinics and hospital sitesin [place], [place], [place] and [place]. This disclosure is being madepursuant to the Care Everywhere program and may not contain all information available regarding this patient. Last updated 18.[facility] Allergies Active Allergy Reactions Criticality Noted Date Comments Cefaclor Rash Medium 03/02/2024 Medications * Be aware that medications may not be up to date on this document. Alwaysverify current medications with the patient. Medication Sig Dispensed Refills Start Date End Date Status Vitamin D, Ergocalciferol, 36542 units CAPS Active Lactic Ac-Citric Ac-Pot Bitart (PHEXXI VA) Active fluticasone propionate (Flonase) 50 MCG/ACT nasal spray [place] 2 (two) sprays into each nostril Active Vit-Fe Fumarate-FA ( VITAMIN PO) Active Docosahexaenoic Acid ( DHA PO) Active gabapentin (Neurontin) 300 MG capsule Take 3 (three) capsules by mouth at bedtime 90 capsule 2 05/12/2024 Active estradiol 0.0125% vaginal cream Insert 1 (one) g into the vagina at bedtime 06/29/2024 Discontinued (List Clean-Up) Active Problems Problem Noted Date Diagnosed Date Vaginal irritation 10/08/2023 Vaginal pain 10/08/2023 Overview (03/02/2024): October 08, 2023 is when I gave vaginally. Encounters Date Type Department Care Team Description 07/06/2024 Telephone [facility] - SHAKE LOADER [address] [place] [id number] Allison Haque APRN-CNP Question 06/29/2024 9:50 AM MANAGER RELATIONSHIP Office Visit [facility] - SHAKE LOADER [address] [place] [phone] Allison Haque APRN-CNP Chronic vulvitis (Primary Dx); Dyspareunia in female; PFD (pelvic floor dysfunction) 06/29/2024 Travel 06/23/2024 Travel 05/12/2024 Refill [facility] - SHAKE LOADER [address] [place] [phone] Allison Haque APRN-CNP Refill Request from Last 3 Months Family History Medical History Relation Name Comments Cancer - Colon Father Diabetes; unknown type Maternal Grandfather High Cholesterol Maternal Grandfather Hypertension Maternal Grandfather CVA Maternal Grandmother Thyroid Disease Maternal Grandmother Depression Mother High Cholesterol Mother Hypertension Mother Diabetes; unknown type Paternal Grandmother Relation Name Status Comments Father Maternal Grandfather Maternal Grandmother Mother Paternal Grandmother Social History Tobacco Use Types Packs/Day Years Used Date Smoking Tobacco: Former Cigarettes S tarted: 2021 Smokeless Tobacco: Never Tobacco Cessation:Counseling Given: Not Answered Alcohol Use Standard Drinks/Week Comments Yes 0 (1 standard drink = 0.6 oz pur e alcohol) 2-3 drinks a week PHQ-2 Answer Date Recorded Patient Health Questionnaire-2 Score 0 06/29/2024 Sex and Gender Information Value Date Recorded Sex Assigned at Female 02/23/2024 11:32 AM CDT Gender Identity Female 02/23/2024 11:32 AM CDT Sexual Orientation Straight 02/23/2024 11 :32 AM CDT Last Filed Vital Signs Vital Sign Reading Time Taken Comments Blood Pressure 126/76 06/29/2024 9:53 AM MANAGER RELATIONSHIP Pulse - - Temperature - - Respiratory Rate - - Oxygen Saturation - - Inhaled Oxygen Concentration - - Weight 66.7 kg (147 lb) 06/29/2024 9:53 AM MANAGER RELATIONSHIP Height 172.7 cm (5' 8 ) 06/29/2024 9:53 AM MANAGER RELATIONSHIP Body Mass Index 22.35 06/29/2024 9:53 AM MANAGER RELATIONSHIP Plan of Treatment Upcoming Encounters Date Type Department Care Team (Late st Contact Info) Description 12/28/2024 10:10 AM CDT Office Visit [facility] - SHAKE LOADER [address] [place] [address] Allison Haque APRN-HOURLY TEAM MEM[employer]ERS [address] [address] Health Maintenance Due Date Last Done Comments PAP SMEAR 1988 HIV SCREENING 02/05/2003 HEPATITIS C SCREENING 02/01/2006 DTAP/TDAP/TD VACCINES (1 - Tdap) 02/05/2007 HEPATITIS B VACCINE (1 of 3 - 19+ 3-dose series) 02/05/2007 COVID-19 VACCINE (1 - 2023-2 5 season) 2024 ZOSTER VACCINE (1 of 2) 02/05/2038 INFLUENZA VACCINE Completed 03/04/2024, 02/08/2023 DEPRESSION SCREENING Completed 06/29/2024 HIB VACCINE Aged Out No longer eligi ble based on patient's age to complete this topic HPV VACCINE Aged Out No longer eligi ble based on patient's age to complete this topic MENINGOCOCCAL (Group B) VACCINE SHARED DECISION-MAKING Aged Out No longer eligible based on patient's age to complete this topic MENINGOCOCCAL GROUPS A/C/Y/W VACCINE Aged Out No longer eligible b ased on patient's age to complete this topic PNEUMOCOCCAL VACCINE Aged Out No long er eligible based on patient's age to complete this topic Care Teams Stretching Press Operator Relationship Specialty Start Date End Date Kerri Figueroa MD [address] [place] [address] PCP - General Family Medicine 03/02/24 Kerri Figueroa MD [address] [place] [address] 02/02/24
--- OUTSIDE RECORDS SUMMARY | 2024-07-20 09:37 | XMS_ITS | Clinical Summary ---
Author Organization [facility] Address [address] [place] [address] Care Team Providers Care Power Sweeper Operator Name Role Phone Kerri Figueroa MD Primary Care Provider Allergies Active Allergy Reactions Criticality Noted Date Comments Cefaclor Rash Medium 12/04/2022 Medications celecoxib (CeleBREX) 200 mg capsule Take 1 capsule (200 mg total) by mouth 2 (two) times a day 3 Active escitalopram (LEXAPRO) 10 mg tablet Take 1 tablet (10 mg total) by mouth daily 3 Active gabapentin (NEURONTIN) 300 mg capsule Take 3 capsules (900 mg total) by mouth daily 3 Active azelastine (ASTELIN) 137 mcg (0.1 %) nasal spray USE 1 SPRAY IN EACH NOSTRIL EVERY 12 HOURS 3 Active cyclobenzaprine (FLEXERIL) 10 mg tablet Take 1 tablet (10 mg total) by mouth 3 (three) times a day as needed for muscle spasms Active acetaminophen ER (TYLENOL) 650 mg 8 hr tablet Take 1 tablet (650 mg total) by mouth every 8 (eight) hours as needed for pain Active loratadine (CLARITIN) 5 mg chewable tablet Take 1 tablet (5 mg total) by mouth daily Active chondroitin sulfate A sodium 400 mg capsule Take by mouth Active ergocalciferol (VITAMIN D) 50,000 unit capsule TAKE 1 CAPSULE BY MOUTH WEEKLY Active ofloxacin (OCUFLOX) 0.3 % ophthalmic solutionIndication s:Acute conjunctivitis of both eyes, unspecified acute conjunctivitis type instill 2 drops in both eyes every4 hours for 2 days, then 2 drops 4 times daily on days 3 through 7 5 mL 5 Active amoxicillin-clavul anate (AUGMENTIN) 875-125 mg per tabletIndications: Acute non-recurrent maxillary sinusitis Take 1 tablet by mouth 2 (two) times a day for 10 days 20 tablet 5 07/03/19 25 Active Problems Patient Care Coordination No te Formatting of this note migh t be different from the original. Kerri Wetzel - PCP No known active problems Encounters Date Type Department Care Team Description 06/22/2024 4:30 PM TOBACCO PACKING MACHINE OPERATOR Office Visit [facility] Medical [facility] Care at [address] [address] Jesenia Sauer NP Acute conjunctivitis of both eyes, unspecified acute conjunctivitis type (Primary Dx); Acute non-recurrent maxillary sinusitis from Last 3 Months Surgical History Surgery Date Site/Laterality Comments WISDOM TOOTH EXTRACTION 05/04/2009 - 05/03/2010 Medical History Medical History Date Comments Anxiety Dermatitis Family History Medical History Relation Name Comments Cancer Father Diabetes Maternal Grandfather Hypertension Maternal Grandfather Cancer Maternal Grandmother Stroke Maternal Grandmother Hypertension Mother Cancer Paternal Grandfather Cancer Paternal Grandmother Diabetes Paternal Grandmother Stroke Paternal Grandmother Relation Name Status Comments Father Maternal Grandfather Maternal Grandmother Mother Paternal Grandfather Paternal Grandmother Social History Tobacco Use Types Packs/Day Years Used Date Smoking Tobacco: Former Cigarettes 0.3 8 2 - 2013 Tobacco Cessation:Counseling Given: No AUDIT-C Answer Date Recorded Q1: How often do you have a drink containing alc ohol? 2-4 times a month 12/04/2022 Q2: How many drinks containi ng alcohol do you have on a typical day when you are drinking? 1 or 2 12/04/2022 Q3: How often do you have si x or more drinks on one occasion? 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 file Not on file Not on file Obstetrics History Last Filed Vital Signs Vital Sign Reading Time Taken Comments Blood Pressure 124/78 06/22/2024 4:16 PM TOBACCO PACKING MACHINE OPERATOR Pulse 107 06/22/2024 4:16 PM TOBACCO PACKING MACHINE OPERATOR Temperature 36.8 C (98.2 F) 06/22/2024 4:16 PM TOBACCO PACKING MACHINE OPERATOR Respiratory Rate 24 06/22/2024 4:16 PM TOBACCO PACKING MACHINE OPERATOR Oxygen Saturation 99% 06/22/2024 4:16 PM TOBACCO PACKING MACHINE OPERATOR Inhaled Oxygen Concentration - - Weight 67.6 kg (149 lb) 06/22/2024 4:16 PM TOBACCO PACKING MACHINE OPERATOR Height 172.7 cm (5' 8 ) 12/04/2022 9:06 AM CDT Body Mass Index 22.66 12/04/2022 9:06 AM CDT Plan of Treatment Health Maintenance Due Date Last Done Comments Cervical Cancer Screening 1988 Depression Screening 1988 Hepatitis C Screening 1988 DTaP/Tdap/Td Vaccine (1 - Tdap) 02/05/1999 Varicella Vaccines (1 of 2 - 13+ 2-dose series) 02/05/2001 Hepatitis B Screening 02/05/2006 Regular Well Visit/Exam 18-64 02/05/2006 Influenza Vaccine Completed 03/08/2024, 02/08/2023 HPV Vaccines Aged Out No longer eligi ble based on patient's age to complete this topic Pneumococcal vaccine <65 Aged Out No longer eligible based on patient's age to complete this topic Procedures Procedure Name Priority Date/Time Associated Diagnosis Comments POC INFLUENZA A/B, COVID-19 ANTIGEN Routine 06/22/2024 4:51 PM TOBACCO PACKING MACHINE OPERATOR Acute non-recurrent maxillary sinusitis POCT RAPID STREP Routine 06/22/2024 4:51 PM TOBACCO PACKING MACHINE OPERATOR Acute non-recurrent maxillary sinusitis from Last 3 Months Results * POC Influenza A/B, COVID-19 antigen (06/22/2024 4:51 PM TOBACCO PACKING MACHINE OPERATOR) Influenza A Ag, POC Negative Negative [facility] Influenza B Ag, POC Negative Negative [facility] COVID-19 Ag POC Presumptive Negative Presumptive Negative, Invalid [facility] Nasal 06/22/2024 4:51 PM TOBACCO PACKING MACHINE OPERATOR Jesenia Sauer NP POINT OF CARE TEST ORDERAB LES Final Result [facility] [place] [address], [facility] * POCT rapid strep A (06/22/2024 4:51 PM TOBACCO PACKING MACHINE OPERATOR) Rapid Strep A, POC Negative Negative Swab 06/22/2024 4:51 PM TOBACCO PACKING MACHINE OPERATOR Jesenia Sauer NP POINT OF CARE TEST ORDERAB LES Final Result from Last 3 Months Insurance [employer] [place] [employer] Care Teams Power Sweeper Operator Relationship Specialty Start Date End Date Kerri Figueroa MD [address] [place] [address] PCP - General Family Medicine 06/22/24
--- OUTSIDE RECORDS SUMMARY | 2024-07-20 09:37 | XMS_ITS | Encounter Summary ---
Author Organization [facility] Address [address] [place] [address] Care Team Providers Care Advertising Copywriter Name Role Phone Kerri Figueroa MD Unavailable [phone] Kerri Figueroa MD Primary Care Provider + Reason for Visit * Reason Onset Date Comments Med Question 04/06/2024 Encounter Details Date Type Department Care Team (Late st Contact Info) Description 04/06/2024 Telephone [facility] - SERVICE CENTER TECHNICIAN [address] [place] [address] Allison Haque APRN-CRESENCIO [address] [facility] [address] [place] [address] Med Question Social History Tobacco Use Types Packs/Day Years Used Date Smoking Tobacco: Former Cigarettes S tarted: 2021 Smokeless Tobacco: Never Alcohol Use Standard Drinks/Week Comments Yes 0 (1 standard drink = 0.6 oz pur e alcohol) 2-3 drinks a week PHQ-2 Answer Date Recorded Patient Health Questionnaire-2 Score 0 02/24/2024 Sex and Gender Information Value Date Recorded Sex Assigned at Female 02/23/2024 11:32 AM CDT Gender Identity Female 02/23/2024 11:32 AM CDT Sexual Orientation Straight 02/23/2024 11 :32 AM CDT documented as of this encounter Miscellaneous Notes * Telephone Encounter - Patricia Franks RN - 04/06/2024 3:58 PM COMPUTERIZED TABLE CUTTER Regular [employer]WE[employer] SALESPERSON Dr Samayoa Patient went in for WWE at that office about 2 weeks ago. Saw ACQUISITIONS ASSISTANT That provider had patient come back in for consultation with Dr Samayoa about these lidocaine injections That provider also suggesting patient consider PFPT biofeedback (Patient reporting Dr Samayoa stating defer to Allison Haque on the vulvar issues) Also, Allison Haque had asked patient to update this office in 2 weeks after increased gabapentin dose: Things are still not better Patient asking: Shabnam thoughts on the injections Also thoughts on PFPT biofeedback Plan now that increased gabapentin not successful Instructed patient: Cancel the injections tomorrow at [place] office until Allison Haque can have additional information on what Dr Samayoa is planning (Requesting office note from the Dr Samayoa visits be faxed to [facility] for review by Nikolay Haque) then a more educated opinion can be provided regarding the injections and PFPT biofeedback This office will be in touch with patent after review of the [place] office information UTERIZED TABLE CUTTER * Telephone Encounter - Courtney Spear - 04/06/2024 2:06 PM CST Patient called to give update and tried the new meds and she saw her regular OB for yearly exam andtold her to try lidacaine injections for 4 wks and want to know what your thoughts would be about it. Patient has appt tomorrow and it is the 1st injection. Please call back today before the appointment. Cb [phone] UTERIZED TABLE CUTTER documented in this encounter Plan of Treatment Upcoming Encounters Date Type Department Care Team (Late st Contact Info) Description 12/28/2024 10:10 AM CDT Office Visit [facility] - SERVICE CENTER TECHNICIAN [address] [place] [address] Allison Haque, AUTO TIRE RECAPPER-CONSULAR OFFICER [address] [facility] [address] [place] [address] documented as of this encounter Visit Diagnoses Not on filedocumented in this encounter Care Teams Advertising Copywriter Relationship Specialty Start Date End Date Kerri Figueroa MD [address] [place] [address] PCP - General Family Medicine 03/02/24 Kerri Figueroa MD [address] [place] [address] 02/02/24 documented as of this encounter
--- OUTSIDE RECORDS SUMMARY | 2024-07-20 09:37 | XMS_ITS | Encounter Summary ---
Author Organization [facility] Address [address] [facility] [place] [address] Care Team Providers Care Valve Tester Name Role Phone Kerri Figueroa MD Unavailable [phone] Kerri Figueroa MD Primary Care Provider + Reason for Visit * Reason Onset Date Comments Question 07/06/2024 Encounter Details Date Type Department Care Team (Late st Contact Info) Description 07/06/2024 Telephone [facility] - ADVANCED QUALITY ENGINEER [address] [facility] [address] [place] [address] Allison Haque APRN-CRESENCIO [address] [address] [place] [address] Question Social History Tobacco Use Types Packs/Day [...] encounter Miscellaneous Notes * Telephone Encounter - Belem Cunningham LPN - 07/06/2024 1:59 PM PECAN GATHERER Will check with provider then call pt. N GATHERER * Telephone Encounter - Manjula Hayden - 07/06/2024 1:37 PM CST Patient calling to get info from us .. On how to wean herself off of the Gabapentin 900 mg.. (as doctor requested) CB# [phone] N GATHERER documented in this encounter Plan of Treatment Upcoming Encounters Date Type Department Care Team (Late st Contact Info) Description 12/28/2024 10:10 AM CDT Office Visit [facility] - ADVANCED QUALITY ENGINEER [address] [place] [phone] Allison Haque, DEPOSITION REPORTER-BINDER FOLDER OPERATOR [address] [facility] [address] [place] [id number] documented as of this encounter Visit Diagnoses Not on filedocumented in this encounter Care Teams Valve Tester Relationship Specialty Start Date End Date Kerri Figueroa MD [address] [place] [address] PCP - General Family Medicine 03/02/24 Kerri Figueroa MD [address] [place] [address] 02/02/24 documented as of this encounter
--- OUTSIDE RECORDS SUMMARY | 2024-07-20 09:37 | XMS_ITS | Referral Summary ---
Author Organization [facility] Address [address] [place] [address] Care Team Providers Care Grades 7 8 Tutor Name Role Phone Kerri Figueroa MD Primary Care Provider Encounters Date Type Department Care Team Description 06/22/2024 4:30 PM DOG FOOD DOUGH MIXER Office Visit 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 Not on file Last Filed Vital Signs Vital Sign Reading Time Taken Comments Blood Pressure 124/78 06/22/2024 4:16 PM DOG FOOD DOUGH MIXER Pulse 107 06/22/2024 4:16 PM DOG FOOD DOUGH MIXER Temperature 36.8 C (98.2 F) 06/22/2024 4:16 PM DOG FOOD DOUGH MIXER Respiratory Rate 24 06/22/2024 4:16 PM DOG FOOD DOUGH MIXER Oxygen Saturation 99% 06/22/2024 4:16 PM DOG FOOD DOUGH MIXER Inhaled Oxygen Concentration - - Weight 67.6 kg (149 lb) 06/22/2024 4:16 PM DOG FOOD DOUGH MIXER Height 172.7 cm (5' 8 ) 12/04/2022 9:06 AM CDT Body Mass Index 22.66 12/04/2022 9:06 AM CDT Plan of Treatment Not on file Procedures Procedure Name Priority Date/Time Associated Diagnosis Comments POC INFLUENZA A/B, COVID-19 ANTIGEN Routine 06/22/2024 4:51 PM DOG FOOD DOUGH MIXER Acute non-recurrent maxillary sinusitis POCT RAPID STREP Routine 06/22/2024 4:51 PM DOG FOOD DOUGH MIXER Acute non-recurrent maxillary sinusitis from Last 3 Months Results * POC Influenza A/B, COVID-19 antigen (06/22/2024 4:51 PM DOG FOOD DOUGH MIXER) Influenza A Ag, POC Negative Negative [facility] Influenza B Ag, POC Negative Negative [facility] COVID-19 Ag POC Presumptive Negative Presumptive Negative, Invalid [facility] Nasal 06/22/2024 4:51 PM DOG FOOD DOUGH MIXER Jesenia Sauer NP POINT OF CARE TEST ORDERAB LES Final Result Performing Organization Address City/State/[facility] Co de Phone Number [facility] [address] [place] [address] * POCT rapid strep A (06/22/2024 4:51 PM DOG FOOD DOUGH MIXER) Rapid Strep A, POC Negative Negative Swab 06/22/2024 4:51 PM DOG FOOD DOUGH MIXER Jesenia Sauer NP POINT OF CARE TEST ORDERAB LES Final Result from Last 3 Months Insurance [facility] OPEN ACCESS Care Teams Grades 7 8 Tutor Relationship Specialty Start Date End Date Kerri Figueroa MD [address] [place] [address] PCP - General Family Medicine 06/22/24
--- OUTSIDE RECORDS SUMMARY | 2024-07-20 09:37 | XMS_ITS | Clinical Summary ---
Author Organization [place] [address] Address [address] [place] [address] Phone Care Team Providers Care Medicaid Collection Specialist Name Role Phone Kerri Figueroa MD Primary Care Provider [phone] Allergies Active Allergy Reactions Criticality Noted Date Comments Cefaclor Rash Low 10/08/2017 Medications ibuprofen (ADVIL;MOTRIN) 100 mg/5 mL suspension Take by mouth every 6 hours as needed for Pain, Mild. Active cetirizine (ZyrTEC) 1 mg/mL Solution Take 1 mg by mouth daily. Active cycloSPORINE (RESTASIS) 0.05 % emulsion 1 Drop 2 times daily. Active azelastine (ASTELIN) 137 mcg/actuation nasal spray Administer 2 Sprays in each nostril 2 times daily. Active fluticasone (FLONASE) 50 mcg/spray [place], Suspension Administer 2 Sprays in each nostril daily. Active methylPREDNISol one (MEDROL DOSPACK) 4 mg Tablets, Dose Pack Take as directed. 1 Package 8 Active traMADol (ULTRAM) 50 mg tablet Take 1 Tablet po TID, prn. 20 Tablet 8 Active cyclobenzaprine (FLEXERIL) 10 mg tablet Take 1 Tablet po QHS, prn. 20 Tablet 8 Active Active Problems No known active problems Encounters Date Type Department Care Team Description 07/09/2024 External Device Data ST[facility] ABSTRACTION Provider, Abstract 07/09/2024 External Device Data [facility] ABSTRACTION Provider, Abstract 07/06/2024 External Device Data [facility] ABSTRACTION Provider, Abstract 06/22/2024 External Device Data [facility] ABSTRACTION Provider, Abstract 06/01/2024 External Device Data [facility] ABSTRACTION Provider, Abstract 05/26/2024 External Device Data [facility] ABSTRACTION Provider, Abstract from Last 3 Months Family History Medical History Relation Name Comments Diabetes Maternal Grandfather Hypertension Maternal Grandfather Arthritis-osteo Mother Cancer Mother Hypertension Mother Relation Name Status Comments Maternal Grandfather Mother Social History Tobacco Use Types Packs/Day Years Used Date Smoking Tobacco: Never Smokeless Tobacco: Never Alcohol Use Standard Drinks/Week Comments Yes 0 (1 standard drink = 0.6 oz pur e alcohol) Comments No Sex and Gender Information Value Date Recorded Sex Assigned at Female 04/30/2023 8:47 PM LARRY OPERATOR Legal Sex Female 3:48 PM CDT Gender Identity Female 04/30/2023 8:47 PM LARRY OPERATOR Sexual Orientation Straight 04/30/2023 8: 47 PM LARRY OPERATOR Last Filed Vital Signs Vital Sign Reading Time Taken Comments Blood Pressure 106/67 10/08/2017 2:30 PM CDT Pulse - - Temperature - - Respiratory Rate - - Oxygen Saturation - - Inhaled Oxygen Concentration - - Weight 61.2 kg (135 lb) 10/08/2017 2:30 PM CDT Height 172.7 cm (5' 8 ) 10/08/2017 2:30 PM CDT Body Mass Index 20.53 10/08/2017 2:30 PM CDT Plan of Treatment Health Maintenance Due Date Last Done Comments DTAP/TDAP/TD VACCINES (1 - Tdap) 02/05/2007 HEPATITIS B VACCINES (1 of 3 - 19+ 3-dose series) 02/05/2007 CERVICAL CANCER SCREENING 02/05/2018 INFLUENZA VACCINE (#1) 2023 HPV VACCINES Aged Out No longer eligi ble based on patient's age to complete this topic Insurance [facility] [employer] [place] ACCESS CHOICE Care Teams Medicaid Collection Specialist Relationship Specialty Start Date End Date Kerri Figueroa MD PCP - General Family Practice 10/08/17
[2024-07-20 10:19] LABS: Basophils Absolute Auto 0.1 K/mm3 (0.0-0.1); Basophils Percent Auto 0.7 % (0.2-1.2); Eosinophils Absolute Auto 0.1 K/mm3 (0-0.3); Eosinophils Percent Auto 0.7 % (0-4.4); Hematocrit 42.5 % (37.0-47.0); Hemoglobin 14.7 g/dL (12.0-15.0); Immature Granulocyte Absolute 0.02 K/mm3 (0.00-0.031); Immature Granulocyte Percent A 0.3 % (0-0.5); Lymphocytes Absolute Auto 2.32 K/mm3 (0.9-3.2); Lymphocytes Percent Auto 32.8 % (18.3-44.2); Mean Corpuscular HGB Conc 34.6 g/dl (32-36); Mean Corpuscular Hemoglobin 30.4 pg (26-34); Mean Platelet Volume 9.7 fl (7.4-10.4); Monocytes Absolute Auto 0.6 K/mm3 (0.1-0.6); Monocytes Percent Auto 7.9 % (2.6-8.5); Neutrophils Absolute Auto 4.1 K/mm3 (1.3-6.7); Neutrophils Percent Auto 57.6 % (45.5-73.1); Platelet Count Result 282 k/mm3 (150-375); Red Blood Count 4.83 M/mm3 (4.2-5.4); Red Cell Distribution Width 12.8 % (11.5-14.5); White Blood Count 7.1 K/mm3 (4.5-10.0)
[2024-07-20 10:31] LABS: Anion Gap 12 mmol/L (4-12); Blood Urea Nitrogen 13 mg/dL (7-17); Calcium 10.3 mg/dL (8.4-10.2); Carbon Dioxide 24 mmol/L (22-30); Chloride 103 mmol/L (98-107); Estimated CRCL calculation 103 ml/min; Estimated Glomerular Filt Rate > 60; Glucose 92 mg/dL (65-110); Potassium 4.2 mmol/L (3.4-5.0); Sodium 139 mmol/L (137-145)
--- NOTE | 2024-07-20 10:41 | ED_ITS ---
HPI - Back Pain/Injury General Chief Complaint: Back Pain/Injury Stated Complaint: back pain, month Time Seen by Provider: 07/20/24 09:50 Source: patient Mode of arrival: ambulatory Limitations: no limitations History of Present Illness HPI Narrative: Patient is a 34 y/o female who presents to the ED with c/o L lower back pain. Patient reports having intermittent pain in her left lower back for the last 1 week. States pain became worse after bending over forward yesterday. Worse with any type of movement. Has not taken anything for pain. Patient is currently around 4-5 weeks gestation. Last normal menstrual cycle was around 06/19. . Denies vaginal bleeding. Denies dysuria or hematuria. Denies abdominal pain. Denies saddle anesthesia, bowel or bladder incontinence, weakness of extremities. Patient does note history of previous back issues, scoliosis, herniated disc. Related Data Home Medications ?Medication ?Instructions ?Recorded ?Confirmed ?Last Taken ?Type cholecalciferol (vitamin D3) 125 125 mcg PO WEEKLY 09/07/23 05/30/24 10/06/23 12:00 History mcg (5,000 unit) tablet (Vitamin D3) vits no.126-ferrous fum 1 tablet PO DAILY 09/07/23 05/30/24 10/06/23 12:00 History 28 mg iron-folic acid 800 mcg tablet (Classic ) fluticasone propionate 50 1 spray intranasal DAILY 10/06/23 05/30/24 10/06/23 12:00 History mcg/actuation nasal spray,suspension gabapentin 100 mg capsule 300 mg PO QHS 05/30/24 05/30/24 Unknown History Allergies Allergy/AdvReac Type Severity Reaction Status Date / Time cefaclor Allergy Unknown Rash Verified 07/20/24 09:50 Review of Systems 2 Review of Systems: All systems reviewed & are unremarkable except as noted in HPI. All systems reviewed & are unremarkable except as noted in HPI and below PMFSH Past Medical History Medical History (normal spontaneous vaginal delivery) Herniated disc VALENCIA (generalized anxiety disorder) Anal fissure Surgical History Surgical History No significant past surgical history Family History Family History Mother Depression Diabetes mellitus borderline Hypertension Diverticulitis Mixed hyperlipidemia Grandparent Family history of lung cancer Diabetes mellitus Hypertension Mixed hyperlipidemia Father Carcinoma of colon Social History Social History Social History: Years smoked: 5 Smoking status: Former smoker Tobacco type: cigarettes Second hand tobacco smoke exposure: No Smoking end date: 10/03/23 Additional smoking assessment comments: Occasional social smoker. Alcohol intake: current Alcohol use details: Socially Substance use: never Substance use type: does not use Do You Feel Safe in your Home?: Yes Lack of Transportation: No Lack of Food: Never True Current Housing: I Have Housing Concerned About Future Housing: No Difficulty Paying Gas/Electric Bills: No Difficulty Paying for Meds: No Currently Unemployed: No Education: Bachelor's Degree Difficulty w/ Childcare or Family Care: No Living arrangements: with family Occupation/Education: occupation Gender identity (if verbalized by the patient): Female Sexual Orientation (if Verbalized by the Patient): Straight or Heterosexual Spiritual care concerns: No Exam 2 Narrative: GENERAL: Mildly uncomfortable appearing, well-nourished, non-toxic, in no acute distress. HEAD: Normocephalic, atraumatic. RESPIRATORY: Airway patent, respirations nonlabored. Clear to auscultation bilaterally, no rales, rhonchi, wheezing. CARDIOVASCULAR: Regular rate and rhythm without murmurs, rubs, or gallops. ABDOMINAL: Soft, no tenderness throughout abdomen, nondistended. Normoactive BS. MUSCULOSKELETAL: Moves all extremities. No gross deformities. No significant midline spinal tenderness. Diffuse tenderness to palpation in left lumbosacral region, reproducing pain. Sensation intact. SKIN: Warm, dry, normal color. NEURO: A&O X3. Speech clear. Cranial nerves II-XII grossly intact. Steady gait. No ataxic movements. PSYCHIATRIC: Appropriate mood and affect. Normal interaction. Course Vital Signs Vital signs: Vital Signs Temperature 97.0 F L 07/20/24 09:06 Pulse Rate 98 07/20/24 09:06 Respiratory Rate 16 07/20/24 09:06 Blood Pressure 111/81 07/20/24 09:06 Pulse Oximetry 100 07/20/24 09:06 Temperature 97.0 F L 07/20/24 09:06 Pulse Rate 84 07/20/24 12:33 Respiratory Rate 16 07/20/24 12:33 Blood Pressure 124/68 07/20/24 12:33 Pulse Oximetry 98 07/20/24 12:33 MDM - Back Pain/Injury MDM Narrative Medical decision making narrative: Patient presented to ED with left lower back pain, worse with movement, worse after bending over yesterday. Currently around 4-5 weeks gestation based on last normal menstrual period. Vital signs are stable upon arrival. Patient is mildly uncomfortable appearing, no abdominal pain or vaginal bleeding. Does have focal reproducible tenderness in left lower back. Suspicious for musculoskeletal etiology, lumbar strain. Laboratory studies are unremarkable. Urine is clear. Beta hCG is 128. Likely just early . I have low suspicion for ectopic at this time. No vaginal bleeding. No abdominal pain. No focal tenderness on abdominal exams. Pain is very reproducible in left lower back, worse with movement. I did discuss obtaining ultrasound however patient would prefer to wait until OB appointment. She has an appointment scheduled in the beginning of August. Discussed case with Dr. Samayoa, OBGYN, advised in such early , OK giving flexeril. Discussed these recommendations with patient. Will prescribe course of Flexeril for home. Advised patient to continue ice, heat, Tylenol. Patient given strict return precautions. Advised if pain becomes localized in left lower quadrant, to return to the ED immediately for ultrasound. Patient voiced understanding. Discharged in stable condition. Medical Records Attestation: I reviewed the patient's medical records. Lab Data Attestation: I reviewed the patient's lab results. 07/20/24 10:12 07/20/24 10:12 Labs: Lab Results 07/20/24 07/20/24 Range/Units 09:14 10:12 WBC 7.1 (4.5-10.0) K/mm3 RBC 4.83 (4.2-5.4) M/mm3 Hgb 14.7 D (12.0-15.0) g/dL Hct 42.5 (37.0-47.0) % MCV 88.0 (80-100) fl MCH 30.4 (26-34) pg MCHC 34.6 (32-36) g/dl RDW 12.8 (11.5-14.5) % Plt Count 282 (150-375) k/mm3 MPV 9.7 (7.4-10.4) fl Immature Gran % (Auto) 0.3 (0-0.5) % Neut % (Auto) 57.6 (45.5-73.1) % Lymph % (Auto) 32.8 (18.3-44.2) % [place] % (Auto) 7.9 (2.6-8.5) % Eos % (Auto) 0.7 (0-4.4) % Baso % (Auto) 0.7 (0.2-1.2) % Lymph # (Auto) 2.32 (0.9-3.2) K/mm3 [place] # (Auto) 0.6 (0.1-0.6) K/mm3 Eos # (Auto) 0.1 (0-0.3) K/mm3 Baso # (Auto) 0.1 (0.0-0.1) K/mm3 Abs Immat Gran (auto) 0.02 (0.00-0.031) K/mm3 Absolute Neuts (auto) 4.1 (1.3-6.7) K/mm3 Absolute Nucleated RBC 0.000 (0.0-0.012) K/mm3 Nucleated RBC % 0.0 (0.0-0.2) % Sodium 139 (137-145) mmol/L Potassium 4.2 (3.4-5.0) mmol/L Chloride 103 (98-107) mmol/L Carbon Dioxide 24 (22-30) mmol/L Anion Gap 12 (4-12) mmol/L BUN 13 (7-17) mg/dL Creatinine 0.70 (0.7-1.0) mg/dL Estim Creat Clear Calc 103 ml/min Estimated GFR > 60 (59 - ) Glucose 92 (65-110) mg/dL Calcium 10.3 H (8.4-10.2) mg/dL Beta HCG, Quant 128.28 mIU/ML Urine Color Yellow (Yellow) Urine Appearance Clear (Clear) Urine pH 6.5 (5.0-9.0) Ur Specific [place] 1.005 (1.001-1.035) Urine Protein Negative (Negative) mg/dL Urine Glucose (UA) Negative (Negative) mg/dL Urine Ketones Negative (Negative) mg/dL Ur Blood (Man) Negative (Negative) Urine Nitrate Negative (Negative) Urine Bilirubin Negative (Negative) Urine Urobilinogen 0.2 (<2.0) mg/dL Leukocyte Esterase Rfl Negative (Negative) CELESTINE/UL Discharge Plan Discharge Clinical Impression: Left lumbar pain, 4 weeks gestation of Patient Disposition: Home, Self-Care Condition: Stable Instructions: Antibiotic Form, Acute Low Back Pain (ED), Lower Back Exercises (ED) Additional Instructions: Continue Tylenol as needed for pain. You may use ice/mild heat, lidocaine patches to area of pain. Take muscle relaxers as needed and prescribed. Recommend taking these at night as they may cause sedation. Do not drive, operate heavy machinery, drink alcohol while on muscle relaxers as this may cause further sedation. Follow-up with your primary care doctor and OBGYN for further evaluation. Return to the ED if you experience worsening or severe pain, recurrent injury, numbness in groin or legs, going to the bathroom without meaning to, unable to keep down food or drink, severe abdominal pain, vaginal bleeding, or any other symptoms of concern. Patient Language: Lao Prescriptions: New lidocaine 5 % adhesive patch,medicated 1 patch topical DAILY Qty: 15 0RF Rx Instructions: leave on most painful area for up to 12 hrs cyclobenzaprine 5 mg tablet 5 mg PO TID PRN (Reason: muscle spasm) Qty: 10 0RF No Action gabapentin 100 mg capsule 300 mg PO QHS Patient Comments: pelvic floor cyclobenzaprine 5 mg tablet 5 mg PO TID PRN (Reason: muscle spasm) Qty: 30 0RF methylprednisolone [Medrol (Corey)] 4 mg tablets,dose pack See Rx Instructions PO PER PKG DIR Qty: 21 0RF Rx Instructions: PO PER PKG DIR for 6 days cholecalciferol (vitamin D3) [Vitamin D3] 125 mcg (5,000 unit) Tablet 125 mcg PO WEEKLY Classic 28 mg iron- 800 mcg Tablet 1 tablet PO DAILY fluticasone propionate 50 mcg/actuation [place],Suspension 1 spray INTRANASAL DAILY Rx Instructions: administer into each nostril ibuprofen 600 mg tablet 600 mg PO Q6H PRN (Reason: pain) Qty: 30 0RF docusate sodium [Colace] 100 mg capsule 100 mg PO BID Qty: 60 0RF Follow-up/Referrals: Nico Zaragoza MD [Primary Care Provider] - Sammie Samayoa MD [Physician] - (OBGYN) Time of Disposition: 12:21
[2024-07-20] MEDS: LIDOCAINE 5% PATCH 1 PATCH TRANSDERM (10:43)
[2024-07-20] MEDS: ACETAMINOPHEN 500 MG TABLET 1000 MG PO (10:43)
[2024-07-20 10:48] LABS: Beta HCG Quantitative 128.28 mIU/ML
--- OUTSIDE RECORDS SUMMARY | 2024-07-20 11:19 | XMS_ITS | Clinical Summary ---
Author Organization [place] [address] Address [address] [place] [address] Phone Care Team Providers Care Guest Services Attendant Name Role Phone Kerri Figueroa MD Primary Care Provider [phone] Allergies Active Allergy Reactions Criticality Noted Date [...] times daily. Active fluticasone (FLONASE) 50 mcg/spray [place], Suspension Administer 2 Sprays in each nostril [...] Sex Assigned at Female 04/30/2023 8:47 PM CARBON LAMP CLEANER Legal Sex Female 3:48 PM CDT Gender Identity Female 04/30/2023 8:47 PM CARBON LAMP CLEANER Sexual Orientation Straight 04/30/2023 8: 47 PM CARBON LAMP CLEANER Last Filed Vital Signs Vital Sign Reading [...] patient's age to complete this topic Insurance [facility] [employer] ACCESS CHOICE Care Teams Guest Services Attendant Relationship Specialty Start Date End Date Kerri Figueroa MD PCP - General Family Practice 10/08/17
--- OUTSIDE RECORDS SUMMARY | 2024-07-20 11:19 | XMS_ITS | Referral Summary ---
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 Not on file Last Filed Vital Signs Vital Sign Reading Time Taken Comments Blood Pressure 124/78 06/22/2024 4:16 PM FIELD OPERATIONS COORDINATOR Pulse 107 06/22/2024 4:16 PM FIELD OPERATIONS COORDINATOR Temperature 36.8 C (98.2 F) 06/22/2024 4:16 PM FIELD OPERATIONS COORDINATOR Respiratory Rate 24 06/22/2024 4:16 PM FIELD OPERATIONS COORDINATOR Oxygen Saturation 99% 06/22/2024 4:16 PM FIELD OPERATIONS COORDINATOR Inhaled Oxygen Concentration - - Weight 67.6 kg (149 lb) 06/22/2024 4:16 PM FIELD OPERATIONS COORDINATOR Height 172.7 cm (5' 8 ) 12/04/2022 9:06 AM CDT Body Mass Index 22.66 12/04/2022 9:06 AM CDT Plan of Treatment Not on file Procedures Procedure Name Priority Date/Time Associated Diagnosis Comments POC INFLUENZA A/B, COVID-19 ANTIGEN Routine 06/22/2024 4:51 PM FIELD OPERATIONS COORDINATOR Acute non-recurrent maxillary sinusitis POCT RAPID STREP Routine 06/22/2024 4:51 PM FIELD OPERATIONS COORDINATOR Acute non-recurrent maxillary sinusitis from Last 3 Months Results * POC Influenza A/B, COVID-19 antigen (06/22/2024 4:51 PM FIELD OPERATIONS COORDINATOR) Influenza A Ag, POC Negative Negative [facility] Influenza B Ag, POC Negative Negative [facility] COVID-19 Ag POC Presumptive Negative Presumptive Negative, Invalid [facility] Nasal 06/22/2024 4:51 PM FIELD OPERATIONS COORDINATOR Jesenia Sauer NP POINT OF CARE TEST ORDERAB LES Final Result Performing Organization Address City/State/[facility] Co de Phone Number [facility] [address] [place] [address] * POCT rapid strep A (06/22/2024 4:51 PM FIELD OPERATIONS COORDINATOR) Rapid Strep A, POC Negative Negative Swab 06/22/2024 4:51 PM FIELD OPERATIONS COORDINATOR Jesenia Sauer NP POINT OF CARE TEST ORDERAB LES Final Result from Last 3 Months Insurance [facility] OPEN ACCESS Care Teams Copper Plate Printer Relationship Specialty Start Date End Date Kerri Figueroa MD [address] [place] [address] PCP - General Family Medicine 06/22/24
--- OUTSIDE RECORDS SUMMARY | 2024-07-20 11:19 | XMS_ITS | Encounter Summary ---
Author Organization [facility] Address [address] [facility] [place] [address] Care Team Providers Care Hvac Technician Residential Name Role Phone Kerri Figueroa MD Unavailable [phone] Kerri Figueroa MD Primary Care Provider + Reason for Visit * Reason Onset Date Comments Question 07/06/2024 Encounter Details Date Type Department Care Team (Late st Contact Info) Description 07/06/2024 Telephone [facility] [address], [facility] [address] [place] [address] Allison Haque APRN-CRESENCIO [address] [facility] [facility] [address] [place] [address] Question Social History Tobacco Use [...] Belem Cunningham LPN - 07/06/2024 1:59 PM MARKETING OPERATIONS INTERN Will check with provider then call pt. ETING OPERATIONS INTERN * Telephone Encounter - Manjula Hayden - 07/06/2024 1:37 PM CST Patient calling to get info from us .. On how to wean herself off of the Gabapentin 900 mg.. (as doctor requested) CB# [phone] ETING OPERATIONS INTERN documented in this encounter Plan of Treatment Upcoming Encounters Date Type Department Care Team (Late st Contact Info) Description 12/28/2024 10:10 AM CDT Office Visit [facility] [address] [facility] [address] [place] [id number] Allison Haque, SURVEILLANCE OBSERVER-POOL PLAYER [address] [facility] [address] [place] [id number] documented as of this encounter Visit Diagnoses Not on filedocumented in this encounter Care Teams Hvac Technician Residential Relationship Specialty Start Date End Date Kerri Figueroa MD [address] [facility] [address] [place] [address] PCP - General Family Medicine 03/02/24 Kerri Figueroa MD [address] [place] [address] 02/02/24 documented as of this encounter
--- OUTSIDE RECORDS SUMMARY | 2024-07-20 11:19 | XMS_ITS | Clinical Summary ---
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 Not on file Obstetrics History Last Filed Vital Signs Vital Sign Reading Time Taken Comments Blood Pressure 124/78 06/22/2024 4:16 PM FOREPART LASTER Pulse 107 06/22/2024 4:16 PM FOREPART LASTER Temperature 36.8 C (98.2 F) 06/22/2024 4:16 PM FOREPART LASTER Respiratory Rate 24 06/22/2024 4:16 PM FOREPART LASTER Oxygen Saturation 99% 06/22/2024 4:16 PM FOREPART LASTER Inhaled Oxygen Concentration - - Weight 67.6 kg (149 lb) 06/22/2024 4:16 PM FOREPART LASTER Height 172.7 cm (5' 8 ) 12/04/2022 [...] A/B, COVID-19 ANTIGEN Routine 06/22/2024 4:51 PM FOREPART LASTER Acute non-recurrent maxillary sinusitis POCT RAPID STREP Routine 06/22/2024 4:51 PM FOREPART LASTER Acute non-recurrent maxillary sinusitis from Last 3 Months Results * POC Influenza A/B, COVID-19 antigen (06/22/2024 4:51 PM FOREPART LASTER) Influenza A Ag, POC Negative Negative [facility] Influenza B Ag, POC Negative Negative [facility] COVID-19 Ag POC Presumptive Negative Presumptive Negative, Invalid [facility] Nasal 06/22/2024 4:51 PM FOREPART LASTER Jesenia Sauer NP POINT OF CARE TEST ORDERAB LES Final Result [facility] EDW [facility] [place] [address], [facility] * POCT rapid strep A (06/22/2024 4:51 PM FOREPART LASTER) Rapid Strep A, POC Negative Negative Swab 06/22/2024 4:51 PM FOREPART LASTER Jesenia Sauer NP POINT OF CARE TEST ORDERAB LES Final Result from Last 3 Months Insurance [employer] Care Teams Real Estate Professional Relationship Specialty Start Date End Date Kerri Figueroa MD [address] [place] [address] PCP - General Family Medicine 06/22/24
--- OUTSIDE RECORDS SUMMARY | 2024-07-20 11:19 | XMS_ITS | Encounter Summary ---
Author Organization [facility] Address [address] [place] [address] Care Team Providers Care Director Business Travel Name Role Phone Kerri Figueroa MD Unavailable [phone] Kerri Figueroa MD Primary Care Provider + Reason for Visit * Reason Onset Date Comments Med Question 04/06/2024 Encounter Details Date Type Department Care Team (Late st Contact Info) Description 04/06/2024 Telephone [facility] - SUPERVISOR POLISHING [address] [place] [address] Allison Haque APRN-CRESENCIO [address] [facility] [address] [place] [address] Med Question Social History Tobacco [...] Patricia Franks RN - 04/06/2024 3:58 PM NEIGHBORHOOD PLANNER Regular DOOR LINER HELPER Dr Samayoa Patient went in for WWE at that office about 2 weeks ago. Saw GRANITE INSTALLER That provider had patient come back in [...] Instructed patient: Cancel the injections tomorrow at [place] office until Allison Haque can have additional information on what Dr Samayoa is planning (Requesting office note from the Dr Samayoa visits be [place]ed [place] [facility] [place] by Nikolay Haque) then a more educated opinion can be provided regarding the injections and PFPT biofeedback This office will be in touch with patent after review of the [place] office information HBORHOOD PLANNER * Telephone Encounter - Courtney Spear - [...] call back today before the appointment. Cb [phone] HBORHOOD PLANNER documented in this encounter Plan of Treatment Upcoming Encounters Date Type Department Care Team (Late st Contact Info) Description 12/28/2024 10:10 AM CDT Office Visit [facility] - SUPERVISOR POLISHING [address] [place] [address] Allison Haque, MARKET PRESIDENT-GREEN MEAT PACKER [address] [facility] [address] [place] [address] documented as of this encounter Visit Diagnoses Not on filedocumented in this encounter Care Teams Director Business Travel Relationship Specialty Start Date End Date Kerri Figueroa MD [address] [place] [address] PCP - General Family Medicine 03/02/24 Kerri Figueroa MD [address] [place] [address] 02/02/24 documented as of this encounter
--- OUTSIDE RECORDS SUMMARY | 2024-07-20 11:19 | XMS_ITS | Clinical Summary ---
Author Organization [facility] Address [address] [facility] [place] [address] Care Team Providers Care Medical Accounts Receivable Specialist Name Role Phone Kerri Figueroa MD Unavailable [phone] Kerri Figueroa MD Primary Care Provider + Source Comments [facility],non-owned Affiliates and Associated Physician Practices is amultiple site organization consisting of ambulatory clinics and hospital sitesin [place], [place] and [place]. This disclosure is being madepursuant to the Care Everywhere program and may not contain all information available regarding this patient. Last updated 18.[facility] Allergies Active Allergy Reactions Criticality Noted Date Comments Cefaclor Rash Medium 03/02/2024 Medications * Be aware that medications may not be up to date on this document. Alwaysverify current medications with the patient. Medication Sig Dispensed Refills Start Date End Date Status Vitamin D, Ergocalciferol, 27469 units CAPS Active Lactic Ac-Citric Ac-Pot Bitart (PHEXXI VA) Active fluticasone propionate (Flonase) 50 MCG/ACT nasal spray [place] 2 (two) sprays into each nostril Active [...] Description 07/06/2024 Telephone [facility] - MANAGEMENT ADVISOR [address] [place] [address] Allison Haque APRN-CNP Question 06/29/2024 9:50 AM EMPLOYEE BENEFITS SPECIALIST Office Visit [facility] - MANAGEMENT ADVISOR [address] [place] [address] Allison Haque APRN-CNP Chronic vulvitis (Primary Dx); Dyspareunia in female; PFD (pelvic floor dysfunction) 06/29/2024 Travel 06/23/2024 Travel 05/12/2024 Refill [facility] - MANAGEMENT ADVISOR [address] [place] [address] Allison Haque APRN-CNP Refill Request from Last [...] Comments Blood Pressure 126/76 06/29/2024 9:53 AM EMPLOYEE BENEFITS SPECIALIST Pulse - - Temperature - - Respiratory Rate - - Oxygen Saturation - - Inhaled Oxygen Concentration - - Weight 66.7 kg (147 lb) 06/29/2024 9:53 AM EMPLOYEE BENEFITS SPECIALIST Height 172.7 cm (5' 8 ) 06/29/2024 9:53 AM EMPLOYEE BENEFITS SPECIALIST Body Mass Index 22.35 06/29/2024 9:53 AM EMPLOYEE BENEFITS SPECIALIST Plan of Treatment Upcoming Encounters Date Type Department Care Team (Late st Contact Info) Description 12/28/2024 10:10 AM CDT Office Visit [facility] - MANAGEMENT ADVISOR [address] [place] [address] Allison Haque APRN-FARMWORKER [employer]OCK [address] [address] Health Maintenance Due Date Last [...] age to complete this topic Care Teams Medical Accounts Receivable Specialist Relationship Specialty Start Date End Date Kerri Figueroa MD [address] [place] [address] PCP - General Family Medicine 03/02/24 Kerri Figueroa MD [address] [place] [address] 02/02/24
[2024-07-20] MEDS: CYCLOBENZAPRINE HCL 5 MG TABLET PO (12:29)
[2024-07-20 12:33] VITALS: BP 124/68; PULSE 84; RESP 16; O2SAT 98
== END 2024-07-20 12:34 | disposition home or self-care (01) ==
PROVIDERS: Emergency Provider Physician Assistant; PCP Family Medicine; Referring Provider Obstetrics & Gynecology Gynecology
DX: O99.891 Other specified diseases and conditions complicating pregnancy (principal); M54.50 Low back pain, unspecified; O09.521 Supervision of elderly multigravida, first trimester; Z87.891 Personal history of nicotine dependence; Z3A.01 Less than 8 weeks gestation of pregnancy
CPT/HCPCS: 36415; 80048; 81003; 84702; 85025; 99283; A9270

== ENCOUNTER 2024-08-16 14:08 | Outpatient (CLI) | payer OTHER, SELFPAY ==
--- NOTE | ~2024-08-16 | US_ITS ---
EXAMINATION: US OB <= 14 weeks fetus DATE: 08/16/2024 14:35 INDICATION: Inconclusive viability during first trimester of TECHNIQUE: Real-time pelvic ultrasound utilizing both a transvaginal and transabdominal probe was pe rformed. The interpreting radiologist was not present for the study. COMPARISON: None. FINDINGS: The uterus measures 11.8 x 5.4 x 7.0 cm. There is an intrauterine gestational sac. A yolk sac and fe justin pole are identified. The crown rump length measures 1.8 cm, which correlates with an estimated ge stational age of 8 weeks and 2 days. heart motion is identified measuring 167 beats per minute (bpm) by M-mode Doppler. 2.2 cm hypoechoic fibroid at the posterior uterine body. The right ovary measures 3.0 x 2.6 x 1.4 cm. The left ovary measures 4.2 x 3.2 x 2.7 cm. 1.9 cm hypoe choic likely corpus luteum cyst in the left ovary. There is no free fluid in the pelvis. IMPRESSION: 1. Single living fetus with heart rate of 167 bpm. 2. Gestational age by ultrasound of 8 weeks 2 day(s) +/- 5 day(s) with ultrasound estimated date of delivery (REINA) of 03/26/2025. Reviewed, dictated and finalized at location A. IMPRESSION: 1. Single living fetus with heart rate of 167 bpm. 2. Gestational age by ultrasound of 8 weeks 2 day(s) +/- 5 day(s) with ultraso und estimated date of delivery (REINA) of 03/26/2025.
== END 2024-08-16 14:09 | disposition home or self-care (01) ==
LOC: MICIMG 14:10
PROVIDERS: PCP Family Medicine; Visit Provider Obstetrics & Gynecology Gynecology
DX: O36.80X0 Pregnancy with inconclusive fetal viability, not applicable or unspecified (principal); Z3A.00 Weeks of gestation of pregnancy not specified
CPT/HCPCS: 76801

== ENCOUNTER 2025-02-16 09:16 | Outpatient (CLI) | payer OTHER, SELFPAY ==
--- NOTE | ~2025-02-16 | US_ITS ---
ULTRASOUND ABDOMEN LIMITED (RIGHT UPPER QUADRANT) Clinical History: RUQ pain Comparison: None Technique: Right upper quadrant sonography Findings: Liver: Normal size. Normal echotexture. No intrahepatic biliary ductal dilatation. Normal hepatopedal flow main portal vein. Common Duct: Normal caliber. 4 mm. Gallbladder: No stones. No wall thickening. No pericholecystic fluid. Pancreas: Visualized portions unremarkable. IMPRESSION: 1. No acute findings. Reviewed, dictated and finalized at location R. IMPRESSION: 1. No acute findings.
== END 2025-02-16 09:17 | disposition home or self-care (01) ==
LOC: GOSHIMG 09:16
PROVIDERS: PCP Obstetrics & Gynecology Gynecology; Visit Provider Obstetrics & Gynecology Gynecology
DX: R10.11 Right upper quadrant pain (principal)
CPT/HCPCS: 76705

== ENCOUNTER 2025-03-28 06:03 | Inpatient (IN) | payer OTHER, SELFPAY ==
[2025-03-28] VITALS (103 sets, daily range): BP systolic 86–141; BP diastolic 45–105; PULSE 66–117; RESP 16–18; TEMP 36.6–37.7; O2SAT 98–100; BMI 25.4
--- OUTSIDE RECORDS SUMMARY | 2025-03-28 06:10 | XMS_ITS | Clinical Summary ---
Author Organization [facility] Address [address] [place] [address] Care Team Providers Care Hop Trainer Name Role Phone Kerri Figueroa MD Unavailable [phone] Kerri Figueroa MD Primary Care Provider + Source Comments [facility],non-owned Affiliates and Associated Physician Practices is amultiple site organization consisting of ambulatory clinics and hospital sitesin [place], [place], [place] and [place]. This disclosure is being madepursuant to the Care Everywhere program and may not contain all information available regarding this patient. Last updated 18.[facility] Allergies Active Allergy Reactions Criticality Noted Date Comments Cefaclor Rash Medium 03/02/2024 Medications * Be aware that medications may not be up to date on this document. Alwaysverify current medications with the patient. Vitamin D, Ergocalciferol, 51100 units CAPS Active Lactic Ac-Citric Ac-Pot Bitart (PHEXXI VA) Active fluticasone propionate (Flonase) 50 MCG/ACT nasal spray [place] 2 (two) sprays into each nostril Active Vit-Fe Fumarate-FA ( VITAMIN PO) Active Docosahexaenoic Acid ( DHA PO) Active gabapentin (Neurontin) 300 MG capsule Take 3 (three) capsules by mouth at bedtime 90 capsule 2 05/12/2024 Active Active Problems Problem Noted Date Diagnosed Date Vaginal irritation 10/08/2023 Vaginal pain 10/08/2023 Overview (03/02/2024): October 08, 2023 is when I gave vaginally. Estimated Date of Delivery Comme nts Yes 03/26/2025 Based on last me nstrual period of 06/19/2024 Family History Medical History Relation Name Comments [...] Years Used Date Smoking Tobacco: Former Cigarettes 3.9 S tarted: 2021 Smokeless Tobacco: Never Tobacco Cessation:Counseling Given: Not Answered Alcohol Use Standard Drinks/Week Comments Yes 0 (1 standard drink = 0.6 oz pur e alcohol) 2-3 drinks a week PHQ-2 Answer Date Recorded Patient Health Questionnaire-2 Score 0 06/29/2024 Estimated Date of Delivery Comme nts Yes 03/26/2025 Based on last me nstrual period of 06/19/2024 Sex and Gender Information Value Date Recorded Sex Assigned at Female 02/23/2024 11:32 AM CDT Legal Sex Female 7:11 AM CDT Gender Identity Female 02/23/2024 11:32 AM CDT Sexual Orientation Straight 02/23/2024 11 :32 AM CDT Last Filed Vital Signs Vital Sign Reading Time Taken Comments Blood Pressure 126/76 06/29/2024 9:53 AM SERVICES HOST Pulse - - Temperature - - Respiratory Rate - - Oxygen Saturation - - Inhaled Oxygen Concentration - - Weight 66.7 kg (147 lb) 06/29/2024 9:53 AM SERVICES HOST Height 172.7 cm (5' 8) 06/29/2024 9:53 AM SERVICES HOST Body Mass Index 22.35 06/29/2024 9:53 AM SERVICES HOST Plan of Treatment Health Maintenance Due Date Last Done Comments HIV SCREENING 02/05/2003 HEPATITIS C SCREENING 02/01/2006 DTAP/TDAP/TD VACCINES (1 - Tdap) 02/05/2007 HEPATITIS B VACCINE (1 of 3 - 19+ 3-dose series) 02/05/2007 Cervical Cancer Screening 02/05/2009 PAP SMEAR 02/05/2009 HPV VACCINE (1 - 3-dose SCDM series) 02/05/2015 PAP with HPV 02/05/2018 OB-ONE HOUR GLUCOSE 12/18/2024 OB-TDAP CURRENT 12/25/2024 OB-RHOGAM INJECTION 01/01/2025 COVID-19 VACCINE (1 - 2024-2 6 season) 2025 INFLUENZA VACCINE (#1) 2025 , 02/08/2023 OB-GROUP B STREP SCREEN 02/19/2025 ZOSTER VACCINE (1 of 2) 02/05/2038 DEPRESSION SCREENING Completed 06/29/2024 HIB VACCINE Aged [...] on patient's age to complete this topic Respiratory Syncytial Virus (RSV) Vaccine Pt: or over 60 yrs (No Doses Required) Completed Insurance Project Travel * Guarantor: JULISSA GREEN Account Type Relation to Patient Date of Phone Billing Address Personal/Family [address] [place] [address] * Guarantor: JULISSA GREEN Account Type Relation to Patient Date of Phone Billing Address Personal/Family [address] [place] [address] Care Teams Hop Trainer Relationship Specialty Start Date End Date Kerri Figueroa MD [address] [place] [address] PCP - General Family Medicine 03/02/24 Kerri Figueroa MD [address] [place] [address] 02/02/24
--- OUTSIDE RECORDS SUMMARY | 2025-03-28 06:10 | XMS_ITS | Clinical Summary ---
Author Organization [place] [address] Address [address] [place] [address] Phone Care Team Providers Care Can Dryer Name Role Phone Kerri Figueroa MD Primary Care Provider [phone] Allergies Active Allergy Reactions Criticality Noted Date [...] times daily. Active fluticasone (FLONASE) 50 mcg/spray [place], Suspension Administer 2 Sprays in each nostril daily. Active methylPREDNISol one (MEDROL DOSPACK) 4 mg Tablets, Dose Pack Take as directed. 1 Package 8 Active traMADol (ULTRAM) 50 mg tablet Take 1 Tablet po TID, prn. 20 Tablet 8 Active cyclobenzaprine (FLEXERIL) 10 mg tablet Take 1 Tablet po QHS, prn. 20 Tablet 8 Active Active Problems No known active problems Family History Medical History Relation Name Comments [...] Sex Assigned at Female 04/30/2023 8:47 PM KELP GATHERER Legal Sex Female 3:48 PM CDT Gender Identity Female 04/30/2023 8:47 PM KELP GATHERER Sexual Orientation Straight 04/30/2023 8: 47 PM KELP GATHERER Last Filed Vital Signs Vital Sign Reading Time Taken Comments Blood Pressure 106/67 10/08/2017 2:30 PM CDT Pulse - - Temperature - - Respiratory Rate - - Oxygen Saturation - - Inhaled Oxygen Concentration - - Weight 61.2 kg (135 lb) 10/08/2017 2:30 PM CDT Height 172.7 cm (5' 8) 10/08/2017 2:30 PM CDT Body Mass Index 20.53 10/08/2017 2:30 PM CDT Plan of Treatment Health Maintenance Due Date Last Done Comments DTAP/TDAP/TD VACCINES (1 - Tdap) 02/05/2007 HEPATITIS B VACCINES (1 of 3 - 19+ 3-dose series) 09/2006 HPV/Cotest (21-29) 02/05/2009 HPV VACCINES (1 - 3-dose SCDM series) 02/05/2015 CERVICAL CANCER SCREENING 02/05/2018 HPV/Cotest (30-65) 02/05/2018 PAP SMEAR 02/05/2018 INFLUENZA VACCINE (#1) 2024 Insurance [facility] BLUE ACCESS CHOICE Care Teams Can Dryer Relationship Specialty Start Date End Date Kerri Figueroa MD PCP - General Family Practice 10/08/17
--- OUTSIDE RECORDS SUMMARY | 2025-03-28 06:10 | XMS_ITS | Encounter Summary ---
Author Organization [facility] Address [address] [place] [address] Care Team Providers Care Messenger Office Name Role Phone Kerri Figueroa MD Unavailable [phone] Kerri Figueroa MD Primary Care Provider + Reason for Visit * Reason Onset Date Comments Question 07/06/2024 Encounter Details Date Type Department Care Team (Late st Contact Info) Description 07/06/2024 Telephone [facility] - PSYCHOPAEDIC NURSE [address] [facility] [address] [place] [address] Allison Haque APRN-CRESENCIO [address] [facility] [address] [place] [address] Question Social History Tobacco Use Types Packs/Day Years Used Date Smoking Tobacco: Former Cigarettes 3.9 S tarted: 2021 Smokeless Tobacco: Never Alcohol Use Standard Drinks/Week Comments Yes 0 (1 standard drink = 0.6 oz pur e alcohol) 2-3 drinks a week PHQ-2 Answer Date Recorded Patient Health Questionnaire-2 Score 0 06/29/2024 Comments No Sex and Gender Information Value Date Recorded Sex Assigned at Female 02/23/2024 11:32 AM CDT Legal Sex Female 7:11 AM CDT Gender Identity Female 02/23/2024 11:32 AM CDT Sexual Orientation Straight 02/23/2024 11 :32 AM CDT documented as of this encounter Miscellaneous Notes * Telephone Encounter - Belem Cunningham LPN - 07/06/2024 1:59 PM CASTINGS TRIMMER Will check with provider then call pt. INGS TRIMMER * Telephone Encounter - Manjula Hayden - 07/06/2024 1:37 PM CST Patient calling to get info from us .. On how to wean herself off of the Gabapentin 900 mg.. (as doctor requested) CB# [phone] INGS TRIMMER documented in this encounter Plan of Treatment Not on file documented as of this encounter Visit Diagnoses Not on filedocumented in this encounter Care Teams Messenger Office Relationship Specialty Start Date End Date Kerri Figueroa MD [address] [place] [address] PCP - General Family Medicine 03/02/24 Kerri Figueroa MD [address] [place] [address] 02/02/24 documented as of this encounter
--- OUTSIDE RECORDS SUMMARY | 2025-03-28 06:10 | XMS_ITS | Clinical Summary ---
Author Organization [facility] Address [address] [place] [address] Care Team Providers Care Pocket Setter Name Role Phone Kerri Figueroa MD Primary [...] WEEKLY Active ofloxacin (OCUFLOX) 0.3 % ophthalmic solutionIndications :Acute conjunctivitis of both eyes, unspecified acute conjunctivitis type instill 2 drops in both eyes every4 hours for 2 days, then 2 drops 4 times daily on days 3 through 7 5 mL Active Active Problems Patient Care Coordination No te Formatting of this note migh t be different from the original. 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 Not on file Not on file Last Filed Vital Signs Vital Sign Reading Time Taken Comments Blood Pressure 124/78 06/22/2024 4:16 PM CLIENT LIAISON Pulse 107 06/22/2024 4:16 PM CLIENT LIAISON Temperature 36.8 C (98.2 F) 06/22/2024 4:16 PM CLIENT LIAISON Respiratory Rate 24 06/22/2024 4:16 PM CLIENT LIAISON Oxygen Saturation 99% 06/22/2024 4:16 PM CLIENT LIAISON Inhaled Oxygen Concentration - - Weight 67.6 kg (149 lb) 06/22/2024 4:16 PM CLIENT LIAISON Height 172.7 cm (5' 8) 12/04/2022 9:06 AM CDT Body Mass Index 22.66 12/04/2022 9:06 AM CDT Plan of Treatment Health Maintenance Due Date Last Done Comments Cervical Cancer Screening 1988 Depression Screening 1988 Hepatitis C Screening 1988 DTaP/Tdap/Td Vaccine (1 - Tdap) 02/05/1999 Varicella Vaccines (1 of 2 - 13+ 2-dose series) 02/05/2001 Hepatitis B Screening 02/05/2006 Regular Well Visit/Exam 18-64 02/05/2006 HPV Vaccines (1 - 3-dose SCD M series) 02/05/2015 Influenza Vaccine (#1) 2025 4, 02/08/2023 Pneumococcal vaccine <65 Aged Out No longer eligible based on patient's age to complete this topic Insurance [employer] Care Teams Pocket Setter Relationship Specialty Start Date End Date Kerri Figueroa MD [address] [facility] [address] [place] [id number] PCP - General Family Medicine 06/22/24
--- OUTSIDE RECORDS SUMMARY | 2025-03-28 06:10 | XMS_ITS | Encounter Summary ---
Author Organization [facility] Address [address] [facility] [place] [address] Care Team Providers Care Cooker Syrup Name Role Phone Kerri Figueroa MD Unavailable [phone] Kerri Figueroa MD Primary Care Provider + Reason for Visit * Reason Onset Date Comments Med Question 04/06/2024 Encounter Details Date Type Department Care Team (Late st Contact Info) Description 04/06/2024 Telephone [facility] - TAX STAFF ACCOUNTANT [address] [facility] [address] [place] [address] Allison Haque APRN-CRESENCIO [address] [facility] [address] [place] [address] Med Question Social History Tobacco Use Types Packs/Day Years Used Date Smoking Tobacco: Former Cigarettes 3.9 S tarted: 2021 Smokeless Tobacco: Never Alcohol Use Standard Drinks/Week Comments Yes 0 (1 standard drink = 0.6 oz pur e alcohol) 2-3 drinks a week PHQ-2 Answer Date Recorded Patient Health Questionnaire-2 Score 0 02/24/2024 Comments No Sex and Gender Information Value Date Recorded Sex Assigned at Female 02/23/2024 11:32 AM CDT Legal Sex Female 7:11 AM CDT Gender Identity Female 02/23/2024 11:32 AM CDT Sexual Orientation Straight 02/23/2024 11 :32 AM CDT documented as of this encounter Miscellaneous Notes * Telephone Encounter - Patricia Franks RN - 04/06/2024 3:58 PM THREAD SINGER Regular GRAVITY METER OPERATOR Dr Samayoa Patient went in for WWE at that office about 2 weeks ago. Saw INTERNATIONAL RECRUITER That provider had patient come back in [...] Instructed patient: Cancel the injections tomorrow at [place] office until Allison Haque can have additional information on what Dr Samayoa is planning (Requesting office note from the Dr Samayoa visits be faxed [place] [facility] [place] review by Nikolay Haque) then a more educated opinion can be provided regarding the injections and PFPT biofeedback This office will be in touch with patent after review of the [place] office information AD SINGER * Telephone Encounter - Courtney Spear - [...] call back today before the appointment. Cb [phone] AD SINGER documented in this encounter Plan of Treatment Not on file documented as of this encounter Visit Diagnoses Not on filedocumented in this encounter Care Teams Cooker Syrup Relationship Specialty Start Date End Date Kerri Figueroa MD [address] [place] [address] PCP - General Family Medicine 03/02/24 Kerri Figueroa MD [address] [place] [address] 02/02/24 documented as of this encounter
[2025-03-28 06:46] LABS: Hematocrit 40.6 % (37.0-47.0); Hemoglobin 13.8 g/dL (12.0-15.0); Immature Granulocyte Percent A 1.0 % (0-0.5); Lymphocytes Absolute Auto 2.15 K/mm3 (0.9-3.2); Mean Corpuscular HGB Conc 34.0 g/dl (32-36); Mean Corpuscular Hemoglobin 31.2 pg (26-34); Mean Corpuscular Volume 91.6 fl (80-100); Nucleated Red Blood Cells Absolute Auto 0.000 K/mm3 (0.0-0.012); Nucleated Red Blood Cells Perc 0.0 % (0.0-0.2); Platelet Count Result 205 k/mm3 (150-375); Red Blood Count 4.43 M/mm3 (4.2-5.4); White Blood Count 9.4 K/mm3 (4.5-10.0)
--- NOTE | 2025-03-28 06:51 | LDADM ---
This patient, Jan Green, was admitted to Labor/Delivery/Recovery 106 on 03/28/25 at 06:03. Plans for labor, pain management and were discussed with patient. Patient/family oriented to hospital policies and general routines including ID bracelet, bed and alarms, visiting hours, pain management, procedures, bathroom and other care routines, personal items, smoking policy, room service/diet and guest tray routines, security routines, and visiting hours. Patient/Family are encouraged to report perceived risks to care and to ask questions if they do not understand what they are told or what they should do. See OBIX for further documentation.
[2025-03-28 07:22] LABS: Syphilis IgG/IgM Antibody Non-Reactive (Nonreactive)
[2025-03-28] MEDS: LACTATED RINGERS 1,000 ML 125 ML IV CONT ×3 (07:30→15:45)
[2025-03-28] MEDS: OXYTOCIN 30 UNITS/NS 500 ML 30 UNITS/500 ML BAG IV CONT (07:30)
[2025-03-28] MEDS: AMPICILLIN SODIUM 2 GM in SODIUM CHLORIDE 0.9% IV 100 ML 200 ML IVPB (07:31)
--- NOTE | 2025-03-28 07:36 | WPDOBADMIT ---
Obstetrics - Admit Note Admission Note: record reviewed. No pertinent additions to the history and/or any subsequent changes in the physical findings that are not consistent with the expected course of the were found. Additions to the history and/or subsequent changes in the physical findings follow. Here for MIL @ 40 wks. Cervix 350/-2 AROM with clear fluid. FHTs category I. Plan Pitocin per protocol. Ampicillin for GBS +.
--- NOTE | 2025-03-28 08:17 | WPDANESEPP ---
Anes - Eval Pre Procedure Procedure: Labor epidural Date/Time: 03/28/25 08:17 Surgeon: Yao Preop Diagnosis: pain during labor Pre Op Diagnosis: IOL Patient Data Age: 35 Gender: F Height: 1.75 m Weight: 78 kg Last Vital Signs Temp 36.6 C 03/28/25 07:20 Pulse 79 03/28/25 07:38 BP 122/76 03/28/25 07:38 O2 Del Method Room Air 03/28/25 06:49 Allergies Allergy/AdvReac Type Severity Reaction Status Date / Time cefaclor Allergy Unknown Rash Verified 03/28/25 06:52 Home Medications ?Medication ?Instructions ?Recorded ?Confirmed ?Type cholecalciferol (vitamin D3) 125 125 mcg PO WEEKLY 09/07/23 03/28/25 History mcg (5,000 unit) tablet (Vitamin D3) vits no.126-ferrous fum 1 tablet PO DAILY 09/07/23 03/28/25 History 28 mg iron-folic acid 800 mcg tablet (Classic ) fluticasone propionate 50 1 spray intranasal DAILY 10/06/23 03/28/25 History mcg/actuation nasal spray,suspension Held on 03/28/25. Instructions: Patient no longer taking docusate sodium 100 mg capsule 100 mg PO BID #60 caps 10/08/23 03/28/25 Rx (Colace) ibuprofen 600 mg tablet 600 mg PO Q6H PRN pain #30 tabs 10/08/23 03/28/25 Rx Held on 03/28/25. Instructions: Patient no longer taking cyclobenzaprine 5 mg tablet 5 mg PO TID PRN muscle spasm #30 05/30/24 03/28/25 Rx Held on 03/28/25. tabs Instructions: Patient no longer taking gabapentin 100 mg capsule 300 mg PO QHS 05/30/24 03/28/25 History Held on 03/28/25. Instructions: Patient no longer taking methylprednisolone 4 mg tablets in See Rx Instructions PO PER PKG DIR 05/30/24 03/28/25 Rx a dose pack (Medrol (Corey)) #21 ea Held on 03/28/25. Instructions: Patient no longer taking cyclobenzaprine 5 mg tablet 5 mg PO TID PRN muscle spasm #10 07/20/24 03/28/25 Rx Held on 03/28/25. tabs Instructions: Patient no longer taking lidocaine 5 % topical patch 1 patch topical DAILY #15 ea 07/20/24 03/28/25 Rx Laboratory Tests 03/28/25 06:41 WBC 9.4 K/mm3 (4.5-10.0) RBC 4.43 M/mm3 (4.2-5.4) Hgb 13.8 g/dL (12.0-15.0) Hct 40.6 % (37.0-47.0) MCV 91.6 fl (80-100) MCH 31.2 pg (26-34) MCHC 34.0 g/dl (32-36) RDW 12.6 % (11.5-14.5) Plt Count 205 k/mm3 (150-375) MPV 10.9 H fl (7.4-10.4) Immature Gran % (Auto) 1.0 H % (0-0.5) Neut % (Auto) 67.5 % (45.5-73.1) Lymph % (Auto) 22.9 % (18.3-44.2) [place] % (Auto) 7.2 % (2.6-8.5) Eos % (Auto) 1.0 % (0-4.4) Baso % (Auto) 0.4 % (0.2-1.2) Lymph # (Auto) 2.15 K/mm3 (0.9-3.2) [place] # (Auto) 0.7 H K/mm3 (0.1-0.6) Eos # (Auto) 0.1 K/mm3 (0-0.3) Baso # (Auto) 0.0 K/mm3 (0.0-0.1) Abs Immat Gran (auto) 0.09 H K/mm3 (0.00-0.031) Absolute Neuts (auto) 6.3 K/mm3 (1.3-6.7) Absolute Nucleated RBC 0.000 K/mm3 (0.0-0.012) Nucleated RBC % 0.0 % (0.0-0.2) Syphilis IgG/IgM Ab Non-reactive (Nonreactive) Blood Type O Positive Antibody Screen Negative Patient hx anesthesia problems: none Family hx anesthesia problems: none Results Review: All pre-operative results and documents have been reviewed as part of the pre-operative evaluation. [facility] Past Medical History Medical History (normal spontaneous vaginal delivery) Herniated disc VALENCIA (generalized anxiety disorder) Anal fissure Surgical History Surgical History No significant past surgical history Family History Family History Mother Depression Diabetes mellitus borderline Hypertension Diverticulitis Mixed hyperlipidemia Grandparent Family history of lung cancer Diabetes mellitus Hypertension Mixed hyperlipidemia Father Carcinoma of colon Social History Social History Social History: Years smoked: 5 Smoking status: Former smoker Tobacco type: cigarettes Second hand tobacco smoke exposure: No Smoking end date: 05/04/21 Additional smoking assessment comments: Occasional social smoker. Alcohol intake: current Alcohol use details: Socially Substance use: never Substance use type: does not use Do You Feel Safe in your Home?: Yes Lack of Transportation: No Lack of Food: Never True Current Housing: I Have Housing Concerned About Future Housing: No Difficulty Paying Gas/Electric Bills: No Difficulty Paying for Meds: No Currently Unemployed: No Education: Bachelor's Degree Difficulty w/ Childcare or Family Care: No Living arrangements: with family Occupation/Education: occupation Gender identity (if verbalized by the patient): Female Sexual Orientation (if Verbalized by the Patient): Straight or Heterosexual Spiritual care concerns: No Exam Day of Procedure 03/28/25 08:17
[2025-03-28] MEDS: AMPICILLIN SODIUM 1 GM in SODIUM CHLORIDE 0.9% IV 50 ML 100 ML IVPB (11:41)
--- NOTE | 2025-03-28 15:29 | PM.OBDSVD ---
DS: Admitting Diagnosis Discharge Date 03/29/25 Admitting Diagnosis IUP 40 wks for AVA DS: Discharge Diagnosis Discharge Diagnosis (1) Hx of maternal laceration, 4th degree, currently : Code(s): O09.299 - Supervision of with other poor reproductive or obstetric history, unspecified trimester Status: Acute OB - DS: Summary OB Procedures : Ultrasound OB Procedures Intrapartum: Spontaneous Vag Delivery and Other (PP hemorrhage) OB Procedures: : None Peripartum Data Infant Delivery Method: Natural Vaginal Laceration Description: Perineal - 4th Degree complications: none Status at Discharge Functional status at discharge: independent ambulation Overall status at discharge: patient is progressing back to baseline Time Spent with Patient Time attestation: Total time spent providing and/or coordinating discharge services: DS: Data Data Completed and Pending Labs on day of discharge: Labs from last 24 hours 03/28/25 06:41 WBC 9.4 RBC 4.43 Hgb 13.8 Hct 40.6 MCV 91.6 MCH 31.2 MCHC 34.0 RDW 12.6 Plt Count 205 MPV 10.9 H Immature Gran % (Auto) 1.0 H Neut % (Auto) 67.5 Lymph % (Auto) 22.9 [place] % (Auto) 7.2 Eos % (Auto) 1.0 Baso % (Auto) 0.4 Lymph # (Auto) 2.15 [place] # (Auto) 0.7 H Eos # (Auto) 0.1 Baso # (Auto) 0.0 Abs Immat Gran (auto) 0.09 H Absolute Neuts (auto) 6.3 Absolute Nucleated RBC 0.000 Nucleated RBC % 0.0 Syphilis IgG/IgM Ab Non-reactive Blood Type O Positive Antibody Screen Negative Discharge Plan Discharge Attending physician on discharge: Sammie Samayoa Discharging Clinician: Sammie Samayoa Anticipated Discharge Date/Time: 03/30/25 15:31 Patient Disposition: Home Activity: may shower and pelvic rest Diet: regular Patient Instructions: Antibiotic Form Patient Language: Micronesian Stand Alone Forms: General Discharge Information Follow-up/Referrals: Sammie Samayoa MD [Physician, [facility]] - 6 Weeks Discharge Medications: New norethindrone (contraceptive) 0.35 mg tablet 0.35 mg PO DAILY Qty: 84 3RF Rx Instructions: start in 3 weeks on Thursday Continued lidocaine 5 % adhesive patch,medicated 1 patch topical DAILY Qty: 15 0RF Rx Instructions: leave on most painful area for up to 12 hrs cholecalciferol (vitamin D3) [Vitamin D3] 125 mcg (5,000 unit) Tablet 125 mcg PO WEEKLY Classic 28 mg iron- 800 mcg Tablet 1 tablet PO DAILY fluticasone propionate 50 mcg/actuation [place],Suspension 1 spray INTRANASAL DAILY Rx Instructions: administer into each nostril docusate sodium [Colace] 100 mg capsule 100 mg PO BID 60 Days Qty: 60 0RF Discontinued gabapentin 100 mg capsule 300 mg PO QHS Patient Comments: pelvic floor cyclobenzaprine 5 mg tablet 5 mg PO TID PRN (Reason: muscle spasm) Qty: 30 0RF methylprednisolone [Medrol (Corey)] 4 mg tablets,dose pack See Rx Instructions PO PER PKG DIR Qty: 21 0RF Rx Instructions: PO PER PKG DIR for 6 days cyclobenzaprine 5 mg tablet 5 mg PO TID PRN (Reason: muscle spasm) Qty: 10 0RF ibuprofen 600 mg tablet 600 mg PO Q6H PRN (Reason: pain) Qty: 30 0RF Date of admission: 03/28/25 06:03 Primary Care Provider: PHYSICIAN,ATHLETIC [employer]UR[employer] WORKER Admitting Provider: Sammie Samayoa Attending physician on admission: Sammie Samayoa Condition: Stable
[2025-03-28] MEDS: OXYTOCIN 30 UNITS/NS 500 ML 30 UNITS/500 ML BAG 125 UNITS IV CONT (15:30)
--- NOTE | 2025-03-28 15:33 | PM.OBPRVD ---
OB - Vaginal Delivery Note Procedure Delivery date: 03/28/25 Events: Other (MIL at term) Induction method: AROM and Per Pitocin Protocol Delivery monitor: External FHT and External Uterine Route of delivery: Episiotomy description: None Laceration Description: Perineal - 4th Degree Delivery repair: vicryl (0 vicryl x 2 for sphincter; 4-0 for mucosa of rectum; 3-0 for vagina and perineum) Specimen: No Quantitative Blood Loss (ml): 1,845 Anesthesia type: Epidural Disposition: Floor Complications: Other complications (4th degree laceration; pp hemorrhage) Narrative: delayed placental delivery Baby Date of : 03/28/25 Gestational Age by Date: 40 Infant gender: Male Weight (pounds): 8 Weight (ounces): 6 presentation: vertex position: Right Occiput Anterior Placenta delivery description: Spontaneous (prolonged but not retained) Cord Vessel Description: 3 Vessels, Nuchal Cord and Delayed Cord Clamping score one minute: 8 score five minutes: 9
[2025-03-28] MEDS: IBUPROFEN 600 MG TABLET PO (18:38)
[2025-03-28] MEDS: WITCH HAZEL 40 PADS 1 PAD TOPICAL (18:44)
[2025-03-28] MEDS: BENZOCAINE 20% AER SPR (*SP) 56 GM CAN 1 SPRAY TOPICAL (18:45)
[2025-03-28] MEDS: ACETAMINOPHEN 325 MG TABLET 650 MG PO (19:45)
[2025-03-28] MEDS: DOCUSATE SODIUM 100 MG CAPSULE PO (19:45)
--- NOTE | 2025-03-28 20:19 | PC.NURSE ---
1916. Patient transferred to post room #287 via wheelchair, at moms side in crib. Support person present. Oriented to unit, room, information board, rooming in, admission packet and security measures. Patient verbalizes understanding.
[2025-03-29] MEDS: IBUPROFEN 600 MG TABLET PO ×4 (01:31→21:53)
[2025-03-29 04:26] VITALS: BP 116/69; PULSE 98; RESP 19; TEMP 37; O2SAT 98
[2025-03-29 04:52] LABS: Hematocrit 28.2 % (37.0-47.0); Hemoglobin 9.5 g/dL (12.0-15.0)
--- NOTE | 2025-03-29 07:26 | P.PNOB_ITS ---
OB - PN: Subj Subjective Date/time seen: 03/29/25 07:26 Patient comments: no complaints and pain well controlled baby status: doing well OB - PN: Obj Data Labs 03/29/25 04:23 Labs: Laboratory Results - last 24 hr 03/28/25 03/29/25 06:41 04:23 Hgb 9.5 L D Hct 28.2 L Antibody Screen Negative OB - PN A/P Plan day: 1 Plan: routine care, discharge home, follow up 6 weeks and other (micronor for BC) Time Spent With Patient Time: Total time spent is greater than 50% in coordination of care (as documented) at patient's floor/unit and/or counseling patient: Exam 2 : Bimanual exam- vagina & uterus: other (Uterus firm, nt @U)
[2025-03-29 07:45] VITALS: BP 123/71; PULSE 82; RESP 18; TEMP 37.2; O2SAT 100
--- NOTE | 2025-03-29 08:51 | WPDANLDPN2 ---
Anes-Prog Note L&D Date/Time: 03/29/25 08:51 Neuro status: Neuro function grossly intact. Cardiovascular status: normal Respiratory status: normal Airway patency: baseline Mental status: baseline Post-Op hydration status: normal Vital Signs: Last Vital Signs Temp 37.0 C 03/29/25 04:26 Pulse 98 03/29/25 04:26 Resp 19 03/29/25 04:26 BP 116/69 03/29/25 04:26 Pulse Ox 98 03/29/25 04:26 O2 Del Method Room Air 03/28/25 19:20 Pain score (VAS): 0 I/O: Intake & Output 03/28/25 03/29/25 03/29/25 23:59 07:59 15:59 Intake Total 1000 Output Total 840 Balance 160 Post-procedural complaints: none Patient feedback: Patient satisfied with anesthetic care.
[2025-03-29] MEDS: ACETAMINOPHEN 325 MG TABLET 650 MG PO ×3 (10:30→21:52)
[2025-03-29] MEDS: DOCUSATE SODIUM 100 MG CAPSULE PO ×2 (10:30→16:21)
[2025-03-29] MEDS: MULTIVIT/MIN/PREN/FOL AC/IRON TABLET 1 TAB PO (10:30)
[2025-03-29 12:11] VITALS: BP 106/60; PULSE 80; RESP 18; TEMP 37.1; O2SAT 99
[2025-03-29] MEDS: WITCH HAZEL 40 PADS 1 PAD TOPICAL (16:21)
--- NOTE | 2025-03-29 17:55 | PC.NURSE ---
[id number] Introductions were made, then consulted with patient to assess needs related to . Discussed with mother her?plans to feed?her infant and the?experience so far. Per mother had been sleepy earlier this morning, then went for his circumcision and is not wanting to wake and breastfeed. It has now been 6 hours since the last feeding around 0230 per mother, CLC and Primary RN recommended to check glucose. Mother requested a manual hand pump kit to use in case the needs to supplement. Instructions given on cleaning, care, usage, that there should be no pain, pumping schedule for milk production, collection, and storage of human milk. Patient was assessed for correct placement, flange size, to pump for comfort and nipple stretching/stimulation for adequate milk production. Parents are encouraged to record the pumping schedule on the feeding sheet.?Mother voiced understanding of the education shared along with mom/baby guide and the pump measurement, flange fit handout for additional resource information. Resources provided for inpatient and outpatient services with the feeding sheet, mom/baby guide and name written on the communication board. Mother voiced understanding of information and will call if there is a request for assistance. Reported to the Primary RN. 0930 Primary RN to room, mother was able to pump 18 mls of colostrum and requested to have RN syringe feed, infant took 9mls. Mother to call if there is a request for assistance with the next feeding. Primary RN reported this to CLC RN. 1300 Mother called CLC to the room, she wanted to not put to breast and only syringe feed at this time. CLC encouraged mother to put infant to breast but if she only wanted to syringe feed then she should go ahead and use the breast pump to protect her milk supply. Per mother she would like to see if would latch and will call if she needs assistance or if infant needs to syringe feed. Reported to Primary RN.
[2025-03-29 20:45] VITALS: BP 114/55; PULSE 88; RESP 18; TEMP 36.9; O2SAT 100
[2025-03-30] MEDS: MULTIVIT/MIN/PREN/FOL AC/IRON TABLET 1 TAB PO (07:32)
[2025-03-30] MEDS: DOCUSATE SODIUM 100 MG CAPSULE PO (07:33)
[2025-03-30] MEDS: IBUPROFEN 600 MG TABLET PO (07:33)
[2025-03-30] MEDS: ACETAMINOPHEN 325 MG TABLET 650 MG PO (07:35)
[2025-03-30 08:30] VITALS: BP 112/71; PULSE 80; RESP 18; TEMP 37.2; O2SAT 99
--- NOTE | 2025-03-30 09:49 | PC.NURSE ---
Patient viewed the discharge video Mother & Baby Care, The First Two Weeks. Patient was given the opportunity and encouraged to ask questions. Patient verbalized understanding of information shared and has been given the mother/baby guide for home reference.
[2025-03-31 15:10] VITALS: BP 124/75; PULSE 99; RESP 20; TEMP 37.1; O2SAT 99
== END 2025-03-30 11:34 | disposition home or self-care (01) | DRG 768 ==
LOC: ANHLDR 15:33 → ANHOB2 19:28
PROVIDERS: Admitting Provider Obstetrics & Gynecology Gynecology; Visit Provider Obstetrics & Gynecology Gynecology
DX: O99.824 Streptococcus B carrier state complicating childbirth (principal); Z37.0 Single live birth; O70.3 Fourth degree perineal laceration during delivery; O72.1 Other immediate postpartum hemorrhage; O69.81X0 Labor and delivery complicated by cord around neck, without compression, not applicable or unspecified; O67.8 Other intrapartum hemorrhage; Z3A.40 40 weeks gestation of pregnancy
CPT/HCPCS: 36415; 85014; 85018; 85025; 86593; 86850; 86900; 86901; A9270; J0290; J2590; J2795; J7120